=== PATIENT | female | born 1955 | race Caucasian/White ===

== ENCOUNTER 2016-08-13 21:42 | Inpatient (IN) | payer OTHER, MEDICARE ==
[~2016-08-13 21:42] MED LIST: AUGM500T7 PO; CYCL5TAB PO; DICL75TA PO; FLUO40CA PO; GABA400C5 PO; GABA800T PO; LISI10TA PO; OXYGENTANK NAS.CANULA; PRAV80TA2 PO; PRED10 PO; TIOT1AER2 INH; TRAM50TA PO; VENTAER INH; ZOLP5TAB3 PO
[2016-08-13 21:46] VITALS: BP 162/79; PULSE 85; RESP 22; TEMP 98.1; O2SAT 88
[2016-08-13 21:55] VITALS: PULSE 85; RESP 20; O2SAT 90
[2016-08-13] MEDS ORDERED: SODIUM CHLORIDE 0.9% FLUSH 5 ML FLUSH IVF PRN (22:00)
--- NOTE | 2016-08-13 22:01 | PD ---
HPI Chief Complaint: Respiratory Distress Time Seen by Provider: 21:49 Travel History International Travel<30 days: No Contact w/Intl Traveler<30days: No Traveled to known affect area: No History of Present Illness HPI 6-year-old female arrives complaining of shortness of breath. She was admitted here for exploratory laparotomy with a total abdominal hysterectomy. Thereafter she became hypoxic. The patient was discharged today and while at home became somewhat hypoxic. She had an oxygen machine at home and was using 3 L nasal cannula. When EMS arrived she was found to be hypoxic in the 70s. They applied a nonrebreather and her O2 sat increased to the mid-80s. In the ER she denies chest pain. She reports constant dyspnea at rest. She's had no fever or an occasional cough is reported. Orthopnea is reported. Dyspnea on exertion is reported. She denies any edema/swelling. PFSH Past Medical History Cancer: No Cardiovascular Problems: Yes Diminished Hearing: No Endocrine: No Genitourinary: No Hepatitis: No Hiatal Hernia: No Hypertension: Yes Immune Disorder: No Musculoskeletal: Yes (DEGENERATIVE DISC DISEASE,ARTHRITIS) Neurologic: No (POSSIBLY 1 SEIZURE IN PAST, NEUROPATHY LEGS FROM BACK) Psychiatric: Yes (DEPRESSION) Respiratory: No Menopausal: Yes Past Surgical History Abdominal Surgery: No AICD: No Body Medical Devices: TITANIUM RODS AND SCREWS BACK Cardiac Surgery: No Section: Yes (X 1) Ear Surgery: No Endocrine Surgery: No Eye Surgery: No Genitourinary Surgery: No Gynecologic Surgery: Yes (C SECTION) Hysterectomy: Yes Joint Replacement: No Neurologic Surgery: Yes (SPINAL FUSION PER PT) Oral Surgery: No Pacemaker: No Thoracic Surgery: No Social History Alcohol Use: Yes (OCCASIONAL) Tobacco Use: Yes Substance Use: No (PT DENIES) Allergies-Medications (Allergen,Severity, Reaction): Coded Allergies: Hydrocodone (Unverified Allergy, Intermediate, ITCHING, 08/13/16) Reported Meds & Prescriptions Reported Meds & Active Scripts Active Oxygen tank (Oxygen) 1 Ea Tank 2 Liter GLO.CANULA CONTINUOUS Oxygen Concentrator Portable Gaseous 3 L/min via Nasal Cannula Continuous For 99 months Reported Ventolin Hfa 18 GM Inh (Albuterol Sulfate) 90 Mcg/Act Aer 2 Puff INH QID PRN Spiriva Respimat Inh (Tiotropium Inh) 1.25 Mcg/Act Aero 2 Puff INH DAILY 1.25 mcg = 1 inhalation Augmentin (Amoxicillin-Clavulanate) 500-125 mg Tab 500 Mg PO TID 7 Days Prednisone 10 Mg Tab 10 Mg PO BID 7 Days Lisinopril-Hctz 10-12.5 Mg Tab 1 Tab PO DAILY Fluoxetine (Fluoxetine HCl) 40 Mg Cap 80 Mg PO DAILY Gabapentin 400 Mg Cap 400 Cap PO BID Gabapentin 800 Mg Tab 800 Mg PO HS Pravastatin 80 Mg Tab 80 Mg PO HS Zolpidem (Zolpidem Tartrate) 5 Mg Tab 5 Mg PO HS Diclofenac Sodium DR (Diclofenac Sodium) 75 Mg Tabdr 75 Mg PO BID Tramadol (Tramadol HCl) 50 Mg Tab 50 Mg PO TID PRN Flexeril (Cyclobenzaprine HCl) 5 Mg Tab 5-10 Mg PO BID PRN Review of Systems Except as stated in HPI: all other systems reviewed are Neg Physical Exam Narrative GENERAL: 60 yo F, WNWD, mild conversation dyspnea, NRB mask present SKIN: Warm and dry. HEAD: Atraumatic. Normocephalic. EYES: Pupils equal and round. No scleral icterus. No injection or drainage. ENT: No nasal bleeding or discharge. Mucous membranes pink and moist. NECK: Trachea midline. No JVD. CARDIOVASCULAR: Regular rate and rhythm. No murmur appreciated. RESPIRATORY: No accessory muscle use. Clear to auscultation. Breath sounds equal bilaterally. GASTROINTESTINAL: Abdomen soft, non-tender, nondistended. Hepatic and splenic margins not palpable. MUSCULOSKELETAL: No obvious deformities. No clubbing. No cyanosis. No edema. NEUROLOGICAL: Awake and alert. No obvious cranial nerve deficits. Motor grossly within normal limits. Normal speech. PSYCHIATRIC: Appropriate mood and affect; insight and judgment normal. Data Data Last Documented VS Vital Signs Date Time Temp Pulse Resp B/P Pulse Ox O2 Delivery O2 Flow Rate FiO2 08/13/16 23:00 96 BiPAP 50 08/13/16 22:00 15 08/13/16 21:55 20 08/13/16 21:55 85 08/13/16 21:46 98.1 162/79 Orders Complete Blood Count With Diff (08/13/16 21:51) Comprehensive Metabolic Panel (08/13/16 21:51) B-Type Natriuretic Peptide (08/13/16 21:51) Arterial Blood Gas (Abg) (08/13/16 21:51) Iv Access Insert/Monitor (08/13/16 21:51) Electrocardiogram (08/13/16 21:51) Ecg Monitoring (08/13/16 21:51) Oximetry (08/13/16 21:51) Oxygen Administration (08/13/16 21:51) Chest, Single Ap (08/13/16 21:51) Sodium Chloride 0.9% Flush (Ns Flush) (08/13/16 22:00) Ct Pulmonary Angiogram (08/13/16 22:19) Resp Request For Service (08/13/16 ) Blood Culture (08/13/16 22:53) Vancomycin Inj (Vancomycin Inj) (08/14/16 00:00) Cefepime Inj (Maxipime Inj) (08/13/16 23:00) Furosemide Inj (Lasix Inj) (08/13/16 23:15) Potassium Chloride (Kcl) (08/13/16 23:15) Furosemide Inj (Lasix Inj) (08/13/16 23:30) Potassium Chloride Eff (K-Lyte Cl Eff) (08/14/16 01:00) Admit Order (Ed Use Only) (08/13/16 23:23) Admit To Inpatient (08/13/16 ) Vital Signs (Adult) Q4H (08/13/16 23:23) Activity Oob With Assistance (08/13/16 23:23) ^ Homicide Detective / Telemetry .CONTINUOUS (08/13/16 23:23) Intake + Output ADE.QSHIFT (08/13/16 23:23) Diet Heart Healthy (08/14/16 Breakfast) Sodium Chloride 0.9% Flush (Ns Flush) (08/13/16 23:30) Sodium Chloride 0.9% Flush (Ns Flush) (08/14/16 09:00) Basic Metabolic Panel (Bmp) (08/14/16 06:00) Complete Blood Count With Diff (08/14/16 06:00) Creatine Kinase (Cpk) (08/14/16 02:00) Creatine Kinase (Cpk) (08/14/16 08:00) Troponin I (08/14/16 02:00) Troponin I (08/14/16 08:00) Electrocardiogram (08/14/16 04:00) Electrocardiogram (08/14/16 10:00) Naloxone Inj (Narcan Inj) (08/13/16 23:30) Inpatient Certification (08/13/16 ) Labs Laboratory Tests Test 08/13/16 08/13/16 21:55 22:00 White Blood Count 27.7 TH/MM3 Red Blood Count 3.54 MIL/MM3 Hemoglobin 11.0 GM/DL Hematocrit 32.8 % Mean Corpuscular Volume 92.6 FL Mean Corpuscular Hemoglobin 31.0 PG Mean Corpuscular Hemoglobin 33.5 % Concent Red Cell Distribution Width 14.0 % Platelet Count 325 TH/MM3 Mean Platelet Volume 9.5 FL Neutrophils (%) (Auto) 88.1 % Lymphocytes (%) (Auto) 6.1 % Monocytes (%) (Auto) 4.1 % Eosinophils (%) (Auto) 1.5 % Basophils (%) (Auto) 0.2 % Neutrophils # (Auto) 24.4 TH/MM3 Lymphocytes # (Auto) 1.7 TH/MM3 Monocytes # (Auto) 1.1 TH/MM3 Eosinophils # (Auto) 0.4 TH/MM3 Basophils # (Auto) 0.1 TH/MM3 CBC Comment AUTO DIFF Differential Comment AUTO DIFF CONFIRMED Platelet Estimate NORMAL Platelet Morphology Comment NORMAL Red Cell Morphology Comment NORMAL Sodium Level 143 MEQ/L Potassium Level 3.1 MEQ/L Chloride Level 104 MEQ/L Carbon Dioxide Level 31.7 MEQ/L Anion Gap 7 MEQ/L Blood Urea Nitrogen 15 MG/DL Creatinine 0.78 MG/DL Estimat Glomerular Filtration 75 ML/MIN Rate Random Glucose 159 MG/DL Calcium Level 7.7 MG/DL Total Bilirubin 0.5 MG/DL Aspartate Amino Transf 27 U/L (AST/SGOT) Alanine Aminotransferase 23 U/L (ALT/SGPT) Alkaline Phosphatase 87 U/L B-Type Natriuretic Peptide 285 PG/ML Total Protein 5.3 GM/DL Albumin 2.6 GM/DL Blood Gas Puncture Site LT RADIAL Blood Gas Patient Temperature 98.6 Blood Gas HCO3 27 mmol/L Blood Gas Base Excess 4.0 mmol/L Blood Gas Oxygen Saturation 91 % Arterial Blood pH 7.50 Arterial Blood Partial 35 mmHg Pressure CO2 Arterial Blood Partial 70 mmHG Pressure O2 Arterial Blood Oxygen Content 14.8 Vol % Arterial Blood 2.9 % Carboxyhemoglobin Arterial Blood Methemoglobin 2.0 % Blood Gas Hemoglobin 11.5 G/DL Oxygen Delivery Device NONE REBREATHER Blood Gas Liter Flow 15 L/M Blood Gas Inspired Oxygen 100 % MDM Medical Decision Making Medical Screen Exam Complete: Yes Emergency Medical Condition: Yes Medical Record Reviewed: Yes Differential Diagnosis COPD, hypoxia, anxiety, pulmonary edema, pneumonia, liver disease, kidney disease Narrative Course CBC & BMP Diagram 08/13/16 21:55 7.50/35/27 NRB FiO2 100% pao2 70 LFTs are normal The troponin is undetectable The BNP 285 EKG reveals sinus rhythm with a rate of 83ischemic injury pattern present. The patient was placed on BiPAP shortly following ER arrival. Her FiO2 was decreased to 50% and her O2 sat increased to 95%. Her white count is 27,000. There is edema on chest x-ray. Healthcare associated antibiotics initiated. Blood cultures drawn. The BNP is elevated at 285. Lasix administered. Case discussed with Dr. Navarro. Critical Care Narrative Aggregate critical care time was 35 minutes. Time to perform other separately billable procedures was not included in the critical care time. My time did not include minutes spent treating any other patients simultaneously or on activities that did not directly contribute to the patient's treatment. The services I provided to this patient were to treat and/or prevent clinically significant deterioration that could result in: Hypoxemia, respiratory arrest I provided critical care services requiring my management, as noted below: Chart data review, documentation time, medication orders and management, vital sign assessments/reviewing monitor data, ordering and reviewing lab tests, ordering and interpreting/reviewing x-rays and diagnostic studies, care of the patient and discussion of the patient with the admitting physicians. Diagnosis Primary Impression: ACUTE PULMONARY EDEMA Additional Impressions: Hypoxia Tachypnea Hypokalemia Admitting Information Admitting Physician Requests: Marcelo Dave MD Aug 13, 2016 22:01
[2016-08-13 22:08] LABS: BLOOD GAS CARBOXYHEMOGLOBIN 2.9 % (0-4); BLOOD GAS HCO3 27 mmol/L (22-26); BLOOD GAS O2 HGB SATURATION 91 % (90-100); BLOOD GAS OXYGEN CONTENT 14.8 Vol % (12.0-20.0); BLOOD GAS PCO2 35 mmHg (38-42); BLOOD GAS PO2 70 mmHG (61-120); BLOOD GAS TOTAL HGB 11.5 G/DL (12.0-16.0); TEMP CORR TO 98.6
[2016-08-13 22:09] LABS: CRITICAL VALUE NO; DRAW SITE LT RADIAL; FIO2 100 %; LITER FLOW 15 L/M; NUMBER OF ARTERIAL PUNCTURES 1; OXYGEN DEVICE NONE REBREATHER; STAT YES; ULNAR PULSE PRESENT
[2016-08-13 22:10] LABS: AUTOMATED NEUTROPHIL # 24.4 TH/MM3 (1.8-7.7); BASOPHIL # 0.1 TH/MM3 (0-0.2); BASOPHIL % 0.2 % (0.0-2.0); EOSINOPHIL # 0.4 TH/MM3 (0-0.4); EOSINOPHIL % 1.5 % (0.0-4.0); HEMATOCRIT 32.8 % (35.0-46.0); LYMPH % 6.1 % (9.0-44.0); LYMPHOCYTE # 1.7 TH/MM3 (1.0-4.8); MEAN CELL VOLUME 92.6 FL (80.0-100.0); MEAN CORPUSCULAR HGB CONC 33.5 % (32.0-36.0); MONO % 4.1 % (0.0-8.0); NEUT % 88.1 % (16.0-70.0); PLATELET COUNT 325 TH/MM3 (150-450); RED BLOOD COUNT 3.54 MIL/MM3 (4.00-5.30); WHITE BLOOD COUNT 27.7 TH/MM3 (4.0-11.0)
[2016-08-13 22:13] LABS: HEMO FLAGS AUTO DIFF
--- NOTE | 2016-08-13 22:18 | RADRPT ---
EXAM DATE/TIME: 08/13/2016 21:52 [facility] COMPARISON: CHEST SINGLE AP, August 13, 2016, 6:16. INDICATIONS : SOB MEDICAL HISTORY : Hypertension. Chronic obstructive pulmonary disease. SURGICAL HISTORY : None. ENCOUNTER: Initial ACUITY: 1 day PAIN SCORE: 0/10 LOCATION: chest FINDINGS: A single portable frontal view the chest shows cardiomegaly with pulmonary vascular enlargement and b ibasilar intra-alveolar infiltrates. No effusions. Scoliotic curvature of a mildly degenerative spine . CONCLUSION: Intra-alveolar pulmonary edema. David sTe Jr., MD on August 13, 2016 at 22:16 Board Certified Radiologist. This report was verified electronically.
[2016-08-13 22:20] VITALS: O2SAT 96
[2016-08-13 22:22] LABS: ALT (GPT) 23 U/L (10-53); ANION GAP 7 MEQ/L (5-15); AST (GOT) 27 U/L (15-37); BICARBONATE 31.7 MEQ/L (21.0-32.0); BLOOD UREA NITROGEN 15 MG/DL (7-18); CHLORIDE 104 MEQ/L (98-107); GLOMERULAR FILTRATION RATE 75 ML/MIN (>89); POTASSIUM 3.1 MEQ/L (3.5-5.1); SODIUM (NA) 143 MEQ/L (136-145)
[2016-08-13 22:24] LABS: ALKALINE PHOSPHATASE 87 U/L (45-117); TOTAL BILIRUBIN ADULT 0.5 MG/DL (0.2-1.0)
[2016-08-13 22:38] LABS: PLATELET ESTIMATE SMEAR NORMAL (NORMAL); PLATELET MORPHOLOGY NORMAL (NORMAL); SCAN/DIFF AUTO DIFF CONFIRMED
[2016-08-13] MEDS ORDERED: CEFEPIME INJ 2,000 MG in SODIUM CHLORIDE 0.9% INJ 100 ML IV ONE (23:00)
[2016-08-13] MEDS ORDERED: POTASSIUM CHLORIDE 20 MEQ CONTROLLED RELEASE TAB PO ONE (23:15)
[2016-08-13] MEDS ORDERED: FUROSEMIDE 20 MG/2 ML VIAL IV PUSH ONE (23:15)
[2016-08-13 23:20] VITALS: O2SAT 94
[2016-08-13] MEDS ORDERED: SODIUM CHLORIDE 0.9% FLUSH 5 ML FLUSH FLUSH PRN (23:30)
[2016-08-13] MEDS ORDERED: FUROSEMIDE 40 MG/4 ML VIAL IV PUSH ONE (23:30)
[2016-08-13] MEDS ORDERED: NALOXONE HCL 0.4 MG/ML AMP IV PRN (23:30)
[2016-08-13] MEDS ORDERED: IOHEXOL 350 MG/ML 10 ML VIAL (for RAD DIAG) IV ONE (23:35)
[2016-08-14] VITALS (34 sets, daily range): BP systolic 129–154; BP diastolic 73–82; PULSE 70–93; RESP 16–25; TEMP 97.8–98.7; O2SAT 89–97
[2016-08-14] MEDS ORDERED: VANCOMYCIN INJ 1,250 MG in SODIUM CHLOR 0.9% 250 ML INJ 250 ML IV ONE ×2
--- NOTE | 2016-08-14 00:09 | RADRPT ---
EXAM DATE/TIME: 08/13/2016 23:22 [facility] COMPARISON: CT PULMONARY ANGIOGRAM, August 06, 2016, 16:51. CHEST SINGLE AP, August 13, 2016, 21:52. INDICATIONS : Hypoxia, shortness of breath; rule out pulmonary embolus. IV CONTRAST: 64 cc Omnipaque 350 (iohexol) IV RADIATION DOSE: 17.54 CTDIvol (mGy) MEDICAL HISTORY : Hypertension. Cardiovascular disease SURGICAL HISTORY : lumbar spine fusion ENCOUNTER: Initial ACUITY: 1 day PAIN SCALE: 0/10 LOCATION: chest TECHNIQUE: Volumetric scanning of the chest was performed using a pulmonary embolism protocol MIP images were re constructed. Using automated exposure control and adjustment of the mA and/or kV according to patien t size, radiation dose was kept as low as reasonably achievable to obtain optimal diagnostic quality images. FINDINGS: PULMONARY ARTERIES: No filling defects are seen in the pulmonary arteries through the segmental level. LUNGS: There appears to be baseline interstitial fibrotic changes. Superimposed on this, diffuse interstitia l and alveolar opacities are present bilaterally, fairly symmetric and diffuse. PLEURAE: Minimal pleural fluid. MEDIASTINUM: There is mable enlargement involving the central mediastinum and the hilar regions bilaterally. This is nonspecific in the setting of diffuse lung disease. Small hiatal hernia present. MUSCULOSKELETAL: Within normal limits for patient age. MISCELLANEOUS: The visualized upper abdominal organs demonstrate no acute abnormality. CONCLUSION: No evidence of pulmonary embolism. Diffuse bilateral lung disease and likely reactive adenopathy. Lux Petersen MD on August 14, 2016 at 0:01 Board Certified Radiologist. This report was verified electronically.
--- NOTE | 2016-08-14 00:18 | HHI.HP ---
[facility] Harley Otto Admission Diagnosis Hypoxia, Pulm Edema, Poss PNA Diagnoses: Chief Complaint: Shortness of breath Travel History International Travel<30 Days: No Contact w/Intl Traveler <30 Da: No Traveled to Known Affected Are: No History of Present Illness History from patient, ER physician communication, and review of medical records. Patient reported that she was just discharged from our hospital in the morning. She reports after she arrived home, she was getting more and more short of breath. Denies cough. Denies sputum production. Denies any chest pains. She states that she was discharged on home oxygen. She was noted to be quite short of breath with hypoxia in the room air to the 80s upon arrival by EMS. In the emergency room, patient was placed on initially nasal cannula. However since her saturation was not picking up well, she was then switched to nonrebreather. She is saturating 95% on nonrebreather. She was also somewhat of an distress in terms of respiratory accessory muscle use. Therefore in ER she was switched to BiPAP. After the BiPAP administration , patient was quite comfortable. At the time of my exam, patient is awake, alert, oriented. Comfortable on BiPAP. She just received her Lasix and therefore she is urinating quite well. Review of Systems Constitutional: COMPLAINS OF: Fatigue, DENIES: Diaphoretic episodes, Fever, Weight gain, Weight loss, Chills, Dizziness, Change in appetite, Night Sweats Other ROS reviewed- none apart from what is reviewed above in HPI Past Family Social History Past Medical History hypertension Obesity COPDon home oxygen History of pulmonary edema in previous admissionpost operatively, from fluid overload. Ovarian massbenign. Recent total anterior hysterectomy. Past Surgical History Hysterectomy Lumbar fusion surgery Thumb surgery Ovarian cyst removal Reported Medications Patient's medications listed in EMRreviewed Allergies: Coded Allergies: Hydrocodone (Unverified Allergy, Intermediate, ITCHING, 08/13/16) Family History Denies family history of any medical issues. Social History Denies any alcohol abuse or drug abuse. Physical Exam Vital Signs Vital Signs Date Time Temp Pulse Resp B/P Pulse Ox O2 Delivery O2 Flow Rate FiO2 08/13/16 23:20 94 08/13/16 23:00 96 BiPAP 50 08/13/16 22:00 92 Non-Rebreather 15 08/13/16 21:55 20 92 Non-Rebreather 15 08/13/16 21:55 85 20 90 Non-Rebreather 15 08/13/16 21:55 86 Nasal Cannula 4 08/13/16 21:46 98.1 85 22 162/79 88 Physical Exam GENERAL: This is a well-nourished, well-developed patient, in no apparent distress. SKIN: No rashes, ecchymoses or lesions. Cool and dry. HEAD: Atraumatic. Normocephalic. No temporal or scalp tenderness. EYES: No scleral icterus. No injection or drainage. ENT: Nose without bleeding, purulent drainage or septal hematoma. Airway patent. NECK: Trachea midline. No JVD CARDIOVASCULAR: Regular rate and rhythm without murmurs, gallops, or rubs. RESPIRATORY: Clear to auscultation. Breath sounds equal bilaterally. No wheezes , rales, or rhonchi. GASTROINTESTINAL: Abdomen soft, non-tender, nondistended. No guarding. MUSCULOSKELETAL: Extremities without clubbing, cyanosis, or edema. No calf tenderness. NEUROLOGICAL: Awake and alert.Motor and sensory grossly within normal limits. Normal speech. Laboratory Laboratory Tests Test 08/13/16 08/13/16 21:55 22:00 White Blood Count 27.7 Red Blood Count 3.54 Hemoglobin 11.0 Hematocrit 32.8 Mean Corpuscular Volume 92.6 Mean Corpuscular Hemoglobin 31.0 Mean Corpuscular Hemoglobin 33.5 Concent Red Cell Distribution Width 14.0 Platelet Count 325 Mean Platelet Volume 9.5 Neutrophils (%) (Auto) 88.1 Lymphocytes (%) (Auto) 6.1 Monocytes (%) (Auto) 4.1 Eosinophils (%) (Auto) 1.5 Basophils (%) (Auto) 0.2 Neutrophils # (Auto) 24.4 Lymphocytes # (Auto) 1.7 Monocytes # (Auto) 1.1 Eosinophils # (Auto) 0.4 Basophils # (Auto) 0.1 CBC Comment AUTO DIFF Differential Comment AUTO DIFF CONFIRMED Platelet Estimate NORMAL Platelet Morphology Comment NORMAL Red Cell Morphology Comment NORMAL Sodium Level 143 Potassium Level 3.1 Chloride Level 104 Carbon Dioxide Level 31.7 Anion Gap 7 Blood Urea Nitrogen 15 Creatinine 0.78 Estimat Glomerular Filtration 75 Rate Random Glucose 159 Calcium Level 7.7 Total Bilirubin 0.5 Aspartate Amino Transf 27 (AST/SGOT) Alanine Aminotransferase 23 (ALT/SGPT) Alkaline Phosphatase 87 B-Type Natriuretic Peptide 285 Total Protein 5.3 Albumin 2.6 Blood Gas Puncture Site LT RADIAL Blood Gas Patient Temperature 98.6 Blood Gas HCO3 27 Blood Gas Base Excess 4.0 Blood Gas Oxygen Saturation 91 Arterial Blood pH 7.50 Arterial Blood Partial 35 Pressure CO2 Arterial Blood Partial 70 Pressure O2 Arterial Blood Oxygen Content 14.8 Arterial Blood 2.9 Carboxyhemoglobin Arterial Blood Methemoglobin 2.0 Blood Gas Hemoglobin 11.5 Oxygen Delivery Device NONE REBREATHER Blood Gas Liter Flow 15 Blood Gas Inspired Oxygen 100 Date/Time Procedure Status Source Growth 08/13/16 22:55 Aerobic Blood Culture Received Blood Peripheral Pending 08/13/16 22:55 Anaerobic Blood Culture Received Blood Peripheral Pending Result Diagram: [id number]/13/16215408/[id number]/[id number] Imaging Last [address] Angiography 08/13/162218 Signed Impressions: Service Date/Time: Saturday, August 13, 2016 23:22 - CONCLUSION: No evidence of pulmonary embolism. Diffuse bilateral lung disease and likely reactive adenopathy. Lux Petersen MD Chest X-Ray 08/13/162150 Signed Impressions: Service Date/Time: Saturday, August 13, 2016 21:52 - CONCLUSION: Intra-alveolar pulmonary edema. David Tse Jr., MD Assessment and Plan Problem List: (1) Hypoxia ICD Code: R09.02 Status: Acute (2) CHF (congestive heart failure) ICD Code: I50.9 Status: Acute (3) COPD exacerbation ICD Code: J44.1 Status: Acute Assessment and Plan Impression Respiratory failuremultifactorial. Mild fluid overload/pulmonary edema, COPD exacerbation, anxiety COPD exacerbation Mild pulmonary edema Hypokalemia hypertension Obesity COPDon home oxygen History of pulmonary edema in previous admissionpost operatively, from fluid overload. Ovarian massbenign. Recent total anterior hysterectomy. Plan: Continue BiPAP therapy. Nebulizers scheduled and when necessary. Serial cardiac enzymes and EKGs. Lasix 20 mg IV 1 dose. Input/output. Potassium 50 mg by mouth one dose now. Continue home dose of steroids. Cardiology consult. Resume home meds. DVT prophylaxison Lovenox. GI prophylaxis on pantoprazole. Discussed Condition With Patient, ER physician Physician Certification 2 Midnight Certification Type: Admission for Inpatient Services Order for Inpatient Services The services are ordered in accordance with Medicare regulations or non- Medicare payer requirements, as applicable. In the case of services not specified as inpatient-only, they are appropriately provided as inpatient services in accordance with the 2-midnight benchmark. Estimated LOS (days): 2 days is the estimated time the patient will need to remain in the hospital, assuming treatment plan goals are met and no additional complications. Post-Hospital Plan: Home Bettina Navarro MD Aug 14, 2016 00:18
[2016-08-14] MEDS ORDERED: traMADol HCL 50 MG TAB PO PRN (01:00)
[2016-08-14] MEDS ORDERED: traMADol HCL 50 MG TAB PO SCH (01:00)
[2016-08-14] MEDS ORDERED: POTASSIUM CHLORIDE 25 MEQ EFFERVESCENT TAB PO ONE (01:00)
[2016-08-14] MEDS ORDERED: ZOLPIDEM TARTRATE 5 MG TAB PO ONE (03:15)
[2016-08-14 05:05] LABS: AUTOMATED NEUTROPHIL # 24.8 TH/MM3 (1.8-7.7); BASOPHIL # 0.1 TH/MM3 (0-0.2); BASOPHIL % 0.2 % (0.0-2.0); EOSINOPHIL # 0.3 TH/MM3 (0-0.4); EOSINOPHIL % 1.2 % (0.0-4.0); HEMATOCRIT 32.2 % (35.0-46.0); LYMPH % 5.4 % (9.0-44.0); LYMPHOCYTE # 1.5 TH/MM3 (1.0-4.8); MEAN CELL VOLUME 93.4 FL (80.0-100.0); MEAN CORPUSCULAR HEMOGLOBIN 31.1 PG (27.0-34.0); MEAN CORPUSCULAR HGB CONC 33.3 % (32.0-36.0); MONO % 4.3 % (0.0-8.0); NEUT % 88.9 % (16.0-70.0); PLATELET COUNT 303 TH/MM3 (150-450); RED BLOOD COUNT 3.45 MIL/MM3 (4.00-5.30); RED CELL DISTRIBUTION WIDTH 14.4 % (11.6-17.2); WHITE BLOOD COUNT 27.9 TH/MM3 (4.0-11.0)
[2016-08-14 05:07] LABS: HEMO FLAGS AUTO DIFF
[2016-08-14 05:25] LABS: ANION GAP 9 MEQ/L (5-15); BICARBONATE 30.8 MEQ/L (21.0-32.0); BLOOD UREA NITROGEN 14 MG/DL (7-18); CHLORIDE 103 MEQ/L (98-107); GLOMERULAR FILTRATION RATE 83 ML/MIN (>89); POTASSIUM 3.6 MEQ/L (3.5-5.1); SODIUM (NA) 143 MEQ/L (136-145)
[2016-08-14 05:50] LABS: KERATOCYTES OCC (NORMAL); PLATELET ESTIMATE SMEAR NORMAL (NORMAL); PLATELET MORPHOLOGY NORMAL (NORMAL); SCAN/DIFF AUTO DIFF CONFIRMED
[2016-08-14 05:52] LABS: CREATINE KINASE 81 U/L (26-192)
[2016-08-14] MEDS: predniSONE 10 MG TAB PO SCH ×2 (08:45→20:10)
[2016-08-14] MEDS: LISINOPRIL 10 MG TAB PO SCH (08:45)
[2016-08-14] MEDS: FLUoxetine HCL 20 MG CAP PO SCH (08:45)
[2016-08-14] MEDS: HYDROCHLOROTHIAZIDE 25 MG TAB PO SCH (08:45)
[2016-08-14] MEDS: SODIUM CHLORIDE 0.9% FLUSH 5 ML FLUSH FLUSH SCH ×2 (08:49→20:14)
[2016-08-14] MEDS ORDERED: TIOTROPIUM INH SCH (09:00)
[2016-08-14] MEDS ORDERED: NON-FORMULARY DRUG (Lisinopril-Hctz 1 TAB) PO SCH (09:00)
[2016-08-14 10:22] LABS: CREATINE KINASE 88 U/L (26-192)
--- NOTE | 2016-08-14 13:48 | MB ---
cc: ROBE KING,ZOHREH TSANG MD DATE OF CONSULTATION: 08/14/2016. REASON FOR CONSULTATION: The patient is a pleasant 62-year-old woman I am seeing for respiratory failure. I have reviewed hospital records. HISTORY OF PRESENT ILLNESS: The patient most recently had an ovarian cyst removed. She notes for the last six months progressive dyspnea on exertion and hypoxemia. She was seen by Dr. Damon during her recent hospital stay. Her respiratory situation has worsened, although she has no other cardiac symptoms or history. Echocardiogram done 08/06 showed normal left ventricular function with very mild aortic stenosis. PAST MEDICAL HISTORY: The patient's past medical history otherwise includes: 1. Hypertension. 2. Obesity. 3. Pulmonary insufficiency on home oxygen. 4. Ovarian mass, benign. 5. Hysterectomy. ALLERGIES: Hydrocodone FAMILY HISTORY: Noncontributory. SOCIAL HISTORY: The patient is single and smoked in the past and does not drink. CARDIOLOGY STUDIES: Electrocardiograms have shown sinus rhythm and were normal. LABORATORY FINDINGS: White count elevated at 28,000. Potassium 3.6, creatinine 0.72. Troponins negative. BNP 285. IMAGING STUDIES: Chest x-ray with diffuse infiltrates. A CT angiogram showed interstitial fibrotic changes with superimposed diffuse interstitial and alveolar opacities and likely reactive adenopathy. REVIEW OF SYSTEMS: Review of systems remarkable for the above. Shortness of breath but no other true complaints. PHYSICAL EXAMINATION: GENERAL: On exam, she is an overweight woman who is lying on her side with BiPAP on. She is alert and oriented times three. SKIN: There are no xanthelasma and oropharyngeal mucosa normal. CHEST: With diffuse posterior rales. CARDIOVASCULAR: JVD normal. S1, S2 with a short 1/6 systolic ejection murmur at the base. ABDOMEN: Benign. EXTREMITIES: No cyanosis, clubbing or edema. PULSES: 2/2 throughout without bruits with 1 to 2+ pedal pulses. ASSESSMENT AND PLAN: The patient has diffuse rales with what appears to be diffuse pulmonary infiltrates. She has normal LV function. Her BNP is minimally elevated, which could easily be explained by her pulmonary situation. This does not appear to be cardiac given her normal LV function and relatively normal EKG. She does have a very mild murmur on exam, which does not explain things either. At this point, I have nothing more to add. We need to get pulmonary back involved as it does appear that she does have a diffuse pulmonary inflammatory process, which needs further evaluation and appropriate treatment. I will be available if needed. All questions were answered. MD KATHERINE Abbasi/DWAYNE /12:10 PM /1:41 PM
--- NOTE | 2016-08-14 13:59 | EKG ---
Date Performed: 08/13/2016 Time Performed: 21:52:25 PTAGE: 60 years EKG: Sinus rhythm WITH SHORT ME INTERVAL POSSIBLE LEFT ATRIAL ENLARGEMENT MINIMAL ST DEPRESSION BORDERLINE ECG Compare d to PREVIOUS TRACING , ST-T changes are new but minimal. PREVIOUS TRACIN08/10/2016 15.18 DOCTOR: Justin Guzman Interpretating Date/Time 08/14/2016 13:59:01
--- NOTE | 2016-08-14 13:59 | EKG ---
Date Performed: 08/14/2016 Time Performed: 04:12:50 PTAGE: 60 years EKG: Sinus rhythm Short [place] interval Possible left atrial abnormality Borderline ECG Compared to PREVIOUS TRACING , ST-T changes have improved. PREVIOUS TRACIN08/13/2016 21.52 DOCTOR: Justin Guzman Interpretating Date/Time 08/14/2016 13:59:21
--- NOTE | 2016-08-14 14:00 | EKG ---
Date Performed: 08/14/2016 Time Performed: 10:40:16 PTAGE: 60 years EKG: Sinus rhythm Short [place] interval Possible left atrial abnormality Borderline ECG Compared to PREVIOUS TRACING , no significant change. PREVIOUS TRACIN08/14/2016 04.12 DOCTOR: Justin Guzman Interpretating Date/Time 08/14/2016 13:59:37
--- NOTE | 2016-08-14 16:16 | HHI.PR ---
Addendum to Inpatient Note Addendum Reason: Additional Documentation Additional Information patient laying flat in bed sleeping - comfortable when woken up started becoming anxious hyperventilating, got out of bed with no difficulty lung exam- no rales , no wheeze, occasinal rhonchi no leg swelling ABG reviewed- respiratory alkalosis- negative for PE discuss with RT- to wean off to NC- duoneb q 6 and q 2 prn leukocytosis0 on CBC- on steroids since last admission - COPD- heavy smoker 1 pp day continue on po Prednisone consult Pulmonary- Dr. Bojorquez-known to him from last admission start Lovenox for DVT prophylaxis some psychiatric component will monitor Villa Davila MD Aug 14, 2016 16:16
[2016-08-14] MEDS: ENOXAPARIN SODIUM 40 MG/0.4 ML SYRINGE SQ SCH (16:34)
[2016-08-14] MEDS ORDERED: RESP: ALBUTEROL 2.5 MG/IPRATROPIUM 0.5 MG NEB (SCH) NEB ×2 (18:00→20:00)
[2016-08-14] MEDS: PRAVASTATIN SOD 80 MG TAB PO SCH (20:09)
[2016-08-14] MEDS: ZOLPIDEM TARTRATE 5 MG TAB PO SCH (20:09)
[2016-08-14] MEDS: traMADol HCL 50 MG TAB PO PRN (20:10)
[2016-08-14] MEDS: RESP: ALBUTEROL 2.5 MG/IPRATROPIUM 0.5 MG NEB (SCH) NEB (21:41)
[2016-08-15] VITALS (26 sets, daily range): BP systolic 112–152; BP diastolic 51–95; PULSE 67–83; RESP 20; TEMP 97.7–98.4; O2SAT 90–97
[2016-08-15] MEDS: RESP: ALBUTEROL 2.5 MG/IPRATROPIUM 0.5 MG NEB (SCH) NEB ×4 (03:22→21:14)
[2016-08-15] MEDS: traMADol HCL 50 MG TAB PO PRN ×2 (05:46→14:43)
[2016-08-15] MEDS: HYDROCHLOROTHIAZIDE 25 MG TAB PO SCH (08:22)
[2016-08-15] MEDS: FLUoxetine HCL 20 MG CAP PO SCH (08:22)
[2016-08-15] MEDS: predniSONE 10 MG TAB PO SCH ×2 (08:22→21:36)
[2016-08-15] MEDS: SODIUM CHLORIDE 0.9% FLUSH 5 ML FLUSH FLUSH SCH ×2 (08:22→21:00)
[2016-08-15] MEDS: LISINOPRIL 10 MG TAB PO SCH (08:22)
--- NOTE | 2016-08-15 13:48 | HHI.PR ---
Subjective Remarks heavy smoker 1 pack per day- stopped recently- from last admission high Fi02 requirement some anxiety component too Objective Vitals Vital Signs Date Time Temp Pulse Resp B/P Pulse Ox O2 Delivery O2 Flow Rate FiO2 08/15/16 13:22 69 08/15/16 12:08 69 08/15/16 11:38 97.8 75 20 112/51 94 08/15/16 11:38 94 Non-Rebreather 15.00 08/15/16 11:38 75 08/15/16 10:13 76 08/15/16 10:13 91 Non-Rebreather 08/15/16 09:22 72 08/15/16 08:52 90 Bi-Pap 12.00 45 08/15/16 08:52 97.8 76 20 152/89 90 08/15/16 08:52 76 08/15/16 07:19 20 08/15/16 05:27 91 45 08/15/16 05:00 68 08/15/16 04:00 70 08/15/16 04:00 92 Bi-Pap 45 08/15/16 04:00 98.4 70 20 133/68 97 08/15/16 03:22 93 BiPAP 45 08/15/16 03:00 67 08/15/16 02:00 73 08/15/16 01:00 75 08/15/16 01:00 91 45 08/15/16 00:25 92 Bi-Pap 45 08/15/16 00:25 98.3 74 20 137/95 97 08/15/16 00:00 78 08/14/16 23:00 77 08/14/16 22:00 93 08/14/16 21:00 86 08/14/16 20:00 81 08/14/16 19:40 97 Bi-Pap 50 08/14/16 19:40 98.3 76 20 129/75 97 08/14/16 19:00 70 08/14/16 18:33 72 08/14/16 18:31 89 BiPAP 08/14/16 18:27 89 50 08/14/16 17:00 75 08/14/16 16:35 98.7 73 25 144/76 96 08/14/16 16:35 96 Bi-Pap 50 08/14/16 16:00 83 08/14/16 15:02 96 50 08/14/16 15:00 72 08/14/16 14:34 87 Bi-Pap 50 08/14/16 14:00 82 I/O 08/14/16 08/14/16 08/14/16 08/15/16 08/15/16 08/15/16 07:00 15:00 23:00 07:00 15:00 23:00 Intake Total 240 ml 240 ml Output Total 1000 ml 600 ml Balance -760 ml -360 ml Intake Oral 240 ml 240 ml Output Urine Total 1000 ml 600 ml Result Diagram: 08/14/16 0415 08/14/16 [address] Angiography 08/13/162218 Signed Impressions: Service Date/Time: Saturday, August 13, 2016 23:22 - CONCLUSION: No evidence of pulmonary embolism. Diffuse bilateral lung disease and likely reactive adenopathy. Lux Petersen MD Chest X-Ray 08/13/162150 Signed Impressions: Service Date/Time: Saturday, August 13, 2016 21:52 - CONCLUSION: Intra-alveolar pulmonary edema. David Tse Jr., MD Objective Remarks awake and aleert, starts hyperventilating anicteric lungs no rales, decreased breath sounds regular rhythm abdomen-soft extremities no edema A/P Assessment and Plan 60 years old emale recent surgery DC 08/13 on NC and came back same day for Acute respiratory failure- underlying COPD- likely (1 ppd)- 02 requiring ABG- Respiratory alkalosis with hypoxemia high fi02 requirement continue on mask CTA negative for PE duonebs Pulmonary consulted- was seen by Dr. Hernandez last admission on Steroids- change to solumedrol 40 mg IV q 8 S/P recent YEE- BSO- pathology- cystadenoma Leukocytosis- on steroids history of Depression- on Prozac history of chronic back pain, neuropathy - gabapentin restarted history of HTN- on HCTZ/GAYATHRI PT consult CM consult- for SNF- she was send home with last admission Lovenox for DVT prophylaxis PPI for GI prophylaxis Villa Davila MD Aug 15, 2016 13:48
[2016-08-15] MEDS: PANTOPRAZOLE SOD 40 MG DELAYED RELEASE TAB PO SCH (14:40)
[2016-08-15] MEDS: GABAPENTIN 400 MG CAP PO SCH ×2 (14:40→21:36)
[2016-08-15] MEDS: methylPREDNISolone SOD SUCC 40 MG/1 ML VIAL IV PUSH SCH ×2 (14:40→21:36)
[2016-08-15] MEDS: ENOXAPARIN SODIUM 40 MG/0.4 ML SYRINGE SQ SCH (16:04)
[2016-08-15 16:31] LABS: RHEUMATOID FACTOR TRIGGER LESS THAN 10.0 IU/ML (0.0-14.9)
[2016-08-15] MEDS: PRAVASTATIN SOD 80 MG TAB PO SCH (21:00)
[2016-08-15] MEDS: ZOLPIDEM TARTRATE 5 MG TAB PO SCH (21:36)
--- NOTE | 2016-08-15 22:11 | MB ---
cc: SUGAR WOOTEN M.D., JOHN DATE OF CONSULTATION 08/15/2016 REASON FOR CONSULTATION Respiratory failure, COPD exacerbation. HISTORY OF PRESENT ILLNESS Ms. Carrillo is a 60-year-old female with known history of COPD, long, heavy smoking history continued to smoke up until two weeks when she had abdominal surgery. The patient is admitted with increasing shortness of breath, seen by Dr. Elvin Dobson in cardiac consultation with cardiac evaluation. He did not feel the patient does have congestive heart failure, rather the possibility of pneumonia is entertained. The patient denies history of fever, chills or hemoptysis. No TB or industrial exposure. Has a cough, small amount of whitish sputum. PAST MEDICAL HISTORY Her past medical history is that of: 1. Respiratory failure on home oxygen therapy recently seen by Dr. Damon. 2. Hypertension. 3. Ovarian mass surgically removed. 4. Previous hysterectomy. ALLERGIES HYDROCODONE. FAMILY HISTORY Noncontributory. SOCIAL HISTORY Long heavy smoking history, continued to smoke up until the time of hospitalization. MEDICATIONS 1. IV Solu-Medrol. 2. Albuterol ipratropium nebulizer. 3. Zolpidem at bedtime p.r.n. 4. Prophylactic Lovenox. 5. Fluoxetine. 6. Lisinopril. 7. Tramadol. REVIEW OF SYSTEMS 12-point review of systems as per HPI and past history otherwise negative. PHYSICAL EXAMINATION VITAL SIGNS: Temperature 98 degrees Fahrenheit, pulse 80, respiration 20, blood pressure 112/50. Oxygen saturation 91-94% on rebreathing mask. HEENT: Exam unremarkable. Eyes without icterus. NECK: Without adenopathy or thyroid enlargement. Central trachea. CHEST: Scattered rhonchi bilaterally. CARDIOVASCULAR: Examination PMI distant. S1-S2 audible. 1/6 ejection systolic murmur left sternal border. ABDOMEN: Lax, bowel sounds audible. EXTREMITIES: No clubbing, cyanosis or edema. SKIN: Normal. No lymphadenopathy. IMAGING CT angiogram without evidence of pulmonary emboli, bilateral lung infiltrates noted. LABORATORY DATA White count 27,000, hemoglobin 10.7, platelets 303,000. Sodium 143, potassium 3.6, BUN 9, creatinine 14. ABG pH 7.50, pCO2 35, pO2 70. IMPRESSION 1. Respiratory failure. 2. Pneumonia. 3. Question congestive heart failure. 4. Obesity. 5. Tobacco abuse. 6. COPD exacerbation. PLAN The patient to continue oxygen therapy. Infectious disease consultation for atypical pneumonia would be appropriate. I am not sure of the extent of the previous workup with collagen vascular studies. Further evaluation of atypical pneumonia would be appropriate. We will discuss this with Dr. Damon who will be following up the patient's care in the a.m. I do thank you for asking me to partake in Ms. Carrillo's care. Sugar Wooten MD [facility] /2:46 PM /9:54 PM
[2016-08-16] VITALS (27 sets, daily range): BP systolic 106–130; BP diastolic 62–72; PULSE 72–94; RESP 20–23; TEMP 97.9–98.5; O2SAT 90–99
[2016-08-16] MEDS: RESP: ALBUTEROL 2.5 MG/IPRATROPIUM 0.5 MG NEB (SCH) NEB ×6 (04:05→23:06)
[2016-08-16] MEDS: methylPREDNISolone SOD SUCC 40 MG/1 ML VIAL IV PUSH SCH ×3 (06:00→21:30)
[2016-08-16] MEDS: FLUoxetine HCL 20 MG CAP PO SCH (10:12)
[2016-08-16] MEDS: PANTOPRAZOLE SOD 40 MG DELAYED RELEASE TAB PO SCH (10:13)
[2016-08-16] MEDS: HYDROCHLOROTHIAZIDE 25 MG TAB PO SCH (10:13)
[2016-08-16] MEDS: predniSONE 10 MG TAB PO SCH (10:13)
[2016-08-16] MEDS: LISINOPRIL 10 MG TAB PO SCH (10:13)
[2016-08-16] MEDS: SODIUM CHLORIDE 0.9% FLUSH 5 ML FLUSH FLUSH SCH ×2 (10:15→21:29)
[2016-08-16] MEDS: GABAPENTIN 400 MG CAP PO SCH ×3 (10:17→21:30)
[2016-08-16 10:30] LABS: BLOOD GAS BASE EXCESS 2.2 mmol/L (-2-2); BLOOD GAS HCO3 26 mmol/L (22-26); BLOOD GAS METHEMOGLOBIN 0.9 % (0-2); BLOOD GAS O2 HGB SATURATION 92 % (90-100); BLOOD GAS OXYGEN CONTENT 16.3 Vol % (12.0-20.0); BLOOD GAS PCO2 39 mmHg (38-42); BLOOD GAS PO2 74 mmHg (61-120); BLOOD GAS TOTAL HGB 12.5 G/DL (12.0-16.0); CRITICAL VALUE NO; OXYGEN DEVICE BIPAP; TEMP CORR TO 98.6
[2016-08-16 10:31] LABS: DRAW SITE RT RADIAL; FIO2 50 %; NUMBER OF ARTERIAL PUNCTURES 1; STAT NO; ULNAR PULSE PRESENT
[2016-08-16] MEDS: traMADol HCL 50 MG TAB PO PRN ×2 (12:30→21:31)
--- NOTE | 2016-08-16 13:03 | HHI.PR ---
Subjective Remarks Follow for shortness of breath Shortness of breath better, had an episode this morning of desaturation, patient was placed on nonrebreather, ABG was fine. Presently, patient feels good, denies any chest pain or fever. Patient is a very poor historian. Objective Vitals Vital Signs Date Time Temp Pulse Resp B/P Pulse Ox O2 Delivery O2 Flow Rate FiO2 08/16/16 11:00 94 Non-Rebreather 15.00 08/16/16 11:00 98.3 84 20 113/63 94 08/16/16 09:00 81 08/16/16 08:19 90 50 08/16/16 08:19 90 BiPAP 50 08/16/16 08:15 Bi-Pap 08/16/16 08:00 84 08/16/16 07:00 78 08/16/16 07:00 91 Non-Rebreather 15.00 08/16/16 07:00 98.4 83 20 130/72 91 08/16/16 04:20 98.2 82 20 124/65 93 08/16/16 04:06 96 45 08/16/16 03:35 92 Bi-Pap 45 08/16/16 03:00 76 08/16/16 01:54 96 45 08/15/16 23:30 92 Bi-Pap 45 08/15/16 23:30 97.9 76 20 136/76 93 08/15/16 23:00 76 08/15/16 22:23 95 45 08/15/16 21:14 96 Non-Rebreather 10.00 08/15/16 20:00 97.9 83 20 125/66 93 08/15/16 20:00 93 Non-Rebreather 15.00 08/15/16 19:00 83 08/15/16 18:37 80 08/15/16 17:08 78 08/15/16 16:01 75 08/15/16 15:43 18 08/15/16 15:14 80 08/15/16 15:14 93 Non-Rebreather 15.00 08/15/16 15:14 97.7 80 20 121/64 93 08/15/16 14:03 80 08/15/16 13:22 69 I/O 08/15/16 08/15/16 08/15/16 08/16/16 08/16/16 08/16/16 06:59 14:59 22:59 06:59 14:59 22:59 Intake Total 240 ml 600 ml Output Total 600 ml 1500 ml Balance -360 ml -900 ml Intake Oral 240 ml 600 ml Output Urine Total 600 ml 1500 ml # Voids 4 # Bowel Movements 0 Result Diagram: 08/14/1641408/14/16414 Objective Remarks Not in distress, appears anxious, on nonrebreather. PERRL, pink conjunctiva without injection, anicteric Nose without bleeding, airway patent, oropharynx clear Supple neck, no masses or thyromegaly, trachea midline Normal rate and regular rhythm, no murmurs gallops or rubs appreciated. Decreased breath sounds symmetrically, no wheezing or crackles appreciated. Normal bowel sounds, soft, non-tender, nondistended, no guarding. Extremities without clubbing, cyanosis, or edema. No rash of generalized distribution. Skin is warm and dry. AAO x3, no cranial nerve deficits, moves all 4 extremities, no focal neurologic deficits Mildly anxious. A/P Assessment and Plan 60 years old female admitted for shortness of breath Acute respiratory failure, possible COPD exacerbation-patient had desaturation this morning, was placed on nonrebreather and BiPAP transiently, I ordered repeat ABG which is good, showed hypoxemia with wide gradient, continue oxygen support, pulmonary consulted, discussed with pulmonary today, recent question for atypical pneumonia, per pulmonary, does not need any infectious disease consultation. Canceled consult for ID. Discussed with Dr. Mckeon from infectious disease. CT negative for PE, continue intravenous steroids and antibiotics for now. CT scan of the chest showed bilateral infiltrates which is improved from previous. Rheumatoid factor negative. Antibiotics started cefepime and Flagyl. Leukocytosis-likely secondary to steroids history of Depression- on Prozac history of chronic back pain, neuropathy - gabapentin history of HTN- on HCTZ/GAYATHRI Anxiety-start Xanax as needed. Constipation-we'll start suppository per patient's request. Lovenox for DVT prophylaxis [facility] to [facility] when ready. Tuyet Cartagena MD Aug 16, 2016 13:03
[2016-08-16] MEDS ORDERED: BISACODYL 10 MG SUPP RECTAL PRN (13:30)
[2016-08-16] MEDS ORDERED: ALPRAZolam 0.25 MG TAB PO PRN (13:30)
--- NOTE | 2016-08-16 13:36 | HHI.PR ---
Subjective Remarks Cough and wheezing. On a NRB mask. No fever. Objective Vital Signs Date Time Temp Pulse Resp B/P Pulse Ox O2 Delivery O2 Flow Rate FiO2 08/16/16 11:00 94 Non-Rebreather 15.00 08/16/16 11:00 98.3 84 20 113/63 94 08/16/16 09:00 81 08/16/16 08:19 90 50 08/16/16 08:19 90 BiPAP 50 08/16/16 08:15 Bi-Pap 08/16/16 08:00 84 08/16/16 07:00 78 08/16/16 07:00 91 Non-Rebreather 15.00 08/16/16 07:00 98.4 83 20 130/72 91 08/16/16 04:20 98.2 82 20 124/65 93 08/16/16 04:06 96 45 08/16/16 03:35 92 Bi-Pap 45 08/16/16 03:00 76 08/16/16 01:54 96 45 08/15/16 23:30 92 Bi-Pap 45 08/15/16 23:30 97.9 76 20 136/76 93 08/15/16 23:00 76 08/15/16 22:23 95 45 08/15/16 21:14 96 Non-Rebreather 10.00 08/15/16 20:00 97.9 83 20 125/66 93 08/15/16 20:00 93 Non-Rebreather 15.00 08/15/16 19:00 83 08/15/16 18:37 80 08/15/16 17:08 78 08/15/16 16:01 75 08/15/16 15:43 18 08/15/16 15:14 80 08/15/16 15:14 93 Non-Rebreather 15.00 08/15/16 15:14 97.7 80 20 121/64 93 08/15/16 14:03 80 I/O 08/15/16 08/15/16 08/15/16 08/16/16 08/16/16 08/16/16 06:59 14:59 22:59 06:59 14:59 22:59 Intake Total 240 ml 600 ml Output Total 600 ml 1500 ml Balance -360 ml -900 ml Intake Oral 240 ml 600 ml Output Urine Total 600 ml 1500 ml # Voids 4 # Bowel Movements 0 Result Diagram: 08/14/16 0415 08/14/16 0415 Objective Remarks Well built Mid aged W/F alert and in no distress HEENT: Exam unremarkable. Eyes without icterus. NECK: Without adenopathy or thyroid enlargement. Central trachea. CHEST: Scattered rhonchi bilaterally.Occ bilateral crackles. CARDIOVASCULAR: Examination PMI distant. S1-S2 audible. 1/6 ejection systolic murmur left sternal border. ABDOMEN: Lax, bowel sounds audible.No mass. EXTREMITIES: No clubbing, cyanosis or edema. SKIN: Normal. No lymphadenopathy. Assessment and Plan Assessment and Plan IMPRESSION 1. Respiratory failure. 2. Pneumonia. 3. Question congestive heart failure. 4. Obesity. 5. Tobacco abuse. 6. COPD exacerbation. Plan: 1. Add Cefipime 1 gm IV BID. 2. Flagyl 500 mg PO tid. 3. nebs qid , duoneb. 4. CXR in am. 5. duonebs qid. 6. O2 at 50 % ventimask. 7. Bipap at HS12/5 CM , 40 % FIO2. 6. CBC,BMP in am Mario Damon MD Aug 16, 2016 13:36
[2016-08-16] MEDS ORDERED: PILL SPLITTER OTHER PRN (14:00)
[2016-08-16] MEDS: CEFEPIME INJ 1,000 MG in SODIUM CHLORIDE 0.9% INJ 100 ML IV SCH (14:22)
[2016-08-16] MEDS: metroNIDAZOLE 500 MG TAB PO SCH ×2 (14:24→21:30)
[2016-08-16] MEDS: ENOXAPARIN SODIUM 40 MG/0.4 ML SYRINGE SQ SCH (17:00)
[2016-08-16] MEDS: PRAVASTATIN SOD 80 MG TAB PO SCH (21:00)
[2016-08-16] MEDS: ZOLPIDEM TARTRATE 5 MG TAB PO SCH (21:30)
[2016-08-17] VITALS (30 sets, daily range): BP systolic 101–121; BP diastolic 52–68; PULSE 72–93; RESP 20; TEMP 97.5–98.5; O2SAT 91–100
--- NOTE | 2016-08-17 02:17 | RADRPT ---
EXAM DATE/TIME: 08/17/2016 01:43 [facility] COMPARISON: CHEST SINGLE AP, August 13, 2016, 21:52. INDICATIONS : Shortness of breath. MEDICAL HISTORY : Hypertension. Cardiovascular disease. SURGICAL HISTORY : Fusion, lumbar. ENCOUNTER: Subsequent ACUITY: 1 week PAIN SCORE: 0/10 LOCATION: Bilateral chest FINDINGS: A single AP erect portable view of the chest was obtained and demonstrates an interval decrease in bi lateral interstitial opacities with mild to moderate residual remaining greatest at the lung bases. T he heart size appears at the upper limits of normal. There is no effusion. The bony thorax remains in tact with overlying electrocardiogram leads. CONCLUSION: Mild improvement in bilateral interstitial opacities. Luis Miguel Sanchez MD on August 17, 2016 at 2:14 Board Certified Radiologist. This report was verified electronically.
[2016-08-17] MEDS: CEFEPIME INJ 1,000 MG in SODIUM CHLORIDE 0.9% INJ 100 ML IV SCH ×2 (03:01→14:43)
[2016-08-17] MEDS: RESP: ALBUTEROL 2.5 MG/IPRATROPIUM 0.5 MG NEB (SCH) NEB ×6 (03:12→19:30)
[2016-08-17] MEDS: metroNIDAZOLE 500 MG TAB PO SCH ×3 (06:33→21:46)
[2016-08-17] MEDS: methylPREDNISolone SOD SUCC 40 MG/1 ML VIAL IV PUSH SCH ×3 (06:34→21:46)
[2016-08-17 07:04] LABS: AUTOMATED NEUTROPHIL # 16.3 TH/MM3 (1.8-7.7); BASOPHIL % 0.1 % (0.0-2.0); HEMATOCRIT 32.1 % (35.0-46.0); HEMO FLAGS DIFF FINAL; LYMPH % 3.2 % (9.0-44.0); LYMPHOCYTE # 0.6 TH/MM3 (1.0-4.8); MEAN CELL VOLUME 94.1 FL (80.0-100.0); MEAN CORPUSCULAR HEMOGLOBIN 31.8 PG (27.0-34.0); MEAN CORPUSCULAR HGB CONC 33.8 % (32.0-36.0); MONO % 8.2 % (0.0-8.0); NEUT % 88.5 % (16.0-70.0); PLATELET COUNT 339 TH/MM3 (150-450); RED BLOOD COUNT 3.41 MIL/MM3 (4.00-5.30); RED CELL DISTRIBUTION WIDTH 14.5 % (11.6-17.2); WHITE BLOOD COUNT 18.4 TH/MM3 (4.0-11.0)
[2016-08-17 07:07] LABS: BICARBONATE 30.9 MEQ/L (21.0-32.0); POTASSIUM 3.5 MEQ/L (3.5-5.1)
[2016-08-17] MEDS: LISINOPRIL 10 MG TAB PO SCH (10:19)
[2016-08-17] MEDS: PANTOPRAZOLE SOD 40 MG DELAYED RELEASE TAB PO SCH (10:19)
[2016-08-17] MEDS: HYDROCHLOROTHIAZIDE 25 MG TAB PO SCH (10:19)
[2016-08-17] MEDS: SODIUM CHLORIDE 0.9% FLUSH 5 ML FLUSH FLUSH SCH ×2 (10:20→21:45)
[2016-08-17] MEDS: FLUoxetine HCL 20 MG CAP PO SCH (10:22)
[2016-08-17] MEDS: GABAPENTIN 400 MG CAP PO SCH ×3 (10:23→21:45)
--- NOTE | 2016-08-17 12:42 | HHI.PR ---
Subjective Remarks Less ough and wheezing. On a NRB mask. No fever. Has some pulmonary edema on CXR. Objective Vital Signs Date Time Temp Pulse Resp B/P Pulse Ox O2 Delivery O2 Flow Rate FiO2 08/17/16 07:18 95 Non-Rebreather 15.00 08/17/16 07:00 98.1 90 20 101/54 92 08/17/16 07:00 90 Non-Rebreather 15.00 08/17/16 07:00 72 08/17/16 06:00 84 08/17/16 05:41 95 55 08/17/16 05:00 75 08/17/16 04:00 81 08/17/16 03:26 94 55 08/17/16 03:00 97.7 77 20 114/66 95 08/17/16 03:00 95 Bi-Pap 55 08/17/16 03:00 77 08/17/16 02:00 74 08/17/16 01:00 72 08/17/16 00:00 76 08/16/16 23:50 95 BiPAP 55 08/16/16 23:30 99 Bi-Pap 55 08/16/16 23:30 98.3 81 23 110/62 98 08/16/16 23:00 81 08/16/16 22:00 91 08/16/16 21:32 96 55 08/16/16 21:00 72 08/16/16 20:00 99 Bi-Pap 60 08/16/16 20:00 97.9 81 20 119/69 99 08/16/16 20:00 78 08/16/16 19:30 92 60 08/16/16 19:00 94 08/16/16 18:00 85 08/16/16 17:00 90 08/16/16 16:00 83 08/16/16 15:00 98.5 79 22 106/64 95 08/16/16 15:00 95 Non-Rebreather 15.00 08/16/16 15:00 86 08/16/16 14:00 90 08/16/16 13:00 78 I/O 08/16/16 08/16/16 08/16/16 08/17/16 08/17/16 08/17/16 07:00 15:00 23:00 07:00 15:00 23:00 Intake Total 579 ml 340 ml Output Total 850 ml 600 ml Balance -271 ml -260 ml Intake Oral 480 ml 240 ml IV Total 99 ml 100 ml Output Urine Total 850 ml 600 ml # Voids 4 # Bowel Movements 1 Result Diagram: 08/17/1660308/17/16603 Objective Remarks Well built Mid aged W/F alert and in no distress HEENT: Exam unremarkable. Eyes without icterus. NECK: Without adenopathy or thyroid enlargement. Central trachea. CHEST: Scattered rhonchi bilaterally.Occ bilateral crackles.Distant breath sounds CARDIOVASCULAR: Examination PMI distant. S1-S2 audible. 1/6 ejection systolic murmur left sternal border. ABDOMEN: Lax, bowel sounds audible.No mass. EXTREMITIES: No clubbing, cyanosis or edema. SKIN: Normal. No lymphadenopathy. Assessment and Plan Assessment and Plan IMPRESSION 1. Respiratory failure. 2. Pneumonia. 3. Question congestive heart failure. 4. Obesity. 5. Tobacco abuse. 6. COPD exacerbation. Plan: 1. Cefipime 1 gm IV BID. 2. Flagyl 500 mg PO tid. 3. nebs qid , duoneb. 4. BMP in am. 5. duonebs qid. 6. O2 at 50 % ventimask. 7. Bipap at HS12/5 CM , 40 % FIO2. 6. Add Lasix 20 mg and Kcl 20 Meq daily. Mario Damon MD Aug 17, 2016 12:42
[2016-08-17] MEDS: FUROSEMIDE 20 MG TAB PO SCH (13:10)
[2016-08-17] MEDS: POTASSIUM CHLORIDE 20 MEQ CONTROLLED RELEASE TAB PO SCH (13:10)
[2016-08-17] MEDS: traMADol HCL 50 MG TAB PO PRN (13:28)
--- NOTE | 2016-08-17 14:46 | HHI.PR ---
Subjective Remarks Follow-up for shortness of breath next Shortness of breath better, chest x-ray shows congestion with bibasilar infiltrates. No fever overnight. Complaining of bilateral wrist pain, chronic , she takes diclofenac 75 mg twice a day. Objective Vitals Vital Signs Date Time Temp Pulse Resp B/P Pulse Ox O2 Delivery O2 Flow Rate FiO2 08/17/16 11:00 95 Non-Rebreather 15.00 08/17/16 11:00 97.5 83 20 121/68 95 08/17/16 07:18 95 Non-Rebreather 15.00 08/17/16 07:00 98.1 90 20 101/54 92 08/17/16 07:00 90 Non-Rebreather 15.00 08/17/16 07:00 72 08/17/16 06:00 84 08/17/16 05:41 95 55 08/17/16 05:00 75 08/17/16 04:00 81 08/17/16 03:26 94 55 08/17/16 03:00 97.7 77 20 114/66 95 08/17/16 03:00 95 Bi-Pap 55 08/17/16 03:00 77 08/17/16 02:00 74 08/17/16 01:00 72 08/17/16 00:00 76 08/16/16 23:50 95 BiPAP 55 08/16/16 23:30 99 Bi-Pap 55 08/16/16 23:30 98.3 81 23 110/62 98 08/16/16 23:00 81 08/16/16 22:00 91 08/16/16 21:32 96 55 08/16/16 21:00 72 08/16/16 20:00 99 Bi-Pap 60 08/16/16 20:00 97.9 81 20 119/69 99 08/16/16 20:00 78 08/16/16 19:30 92 60 08/16/16 19:00 94 08/16/16 18:00 85 08/16/16 17:00 90 08/16/16 16:00 83 08/16/16 15:00 98.5 79 22 106/64 95 08/16/16 15:00 95 Non-Rebreather 15.00 08/16/16 15:00 86 I/O 12/26/16 12/2608/16/16 08/17/16 08/17/16 08/17/16 07:00 15:00 23:00 07:00 15:00 23:00 Intake Total 579 ml 340 ml Output Total 850 ml 600 ml Balance -271 ml -260 ml Intake Oral 480 ml 240 ml IV Total 99 ml 100 ml Output Urine Total 850 ml 600 ml # Voids 4 # Bowel Movements 1 Result Diagram: 08/17/1660308/17/16603 Objective Remarks Not in distress, appears anxious, on nonrebreather. PERRL, pink conjunctiva without injection, anicteric Nose without bleeding, airway patent, oropharynx clear Supple neck, no masses or thyromegaly, trachea midline Normal rate and regular rhythm, no murmurs gallops or rubs appreciated. Decreased breath sounds symmetrically, no wheezing, occasional crackles. Normal bowel sounds, soft, non-tender, nondistended, no guarding. Extremities without clubbing, cyanosis, or edema. No rash of generalized distribution. Skin is warm and dry. AAO x3, no cranial nerve deficits, moves all 4 extremities, no focal neurologic deficits Mildly anxious. A/P Assessment and Plan 60 years old female admitted for shortness of breath Acute respiratory failure, possible COPD exacerbation-patient had desaturation this morning, was placed on nonrebreather and BiPAP transiently, I ordered repeat ABG which is good, showed hypoxemia with wide gradient, continue oxygen support, pulmonary consulted, discussed with pulmonary today, recent question for atypical pneumonia, per pulmonary, does not need any infectious disease consultation. Canceled consult for ID. Discussed with Dr. Mckeon from infectious disease. CT negative for PE, continue intravenous steroids and antibiotics for now. CT scan of the chest showed bilateral infiltrates which is improved from previous. Rheumatoid factor negative. Continue cefepime and Flagyl. Mild CHF- chest x-ray personally reviewed showed pulmonary edema, start Lasix, check BNP. Records reviewed, showed an ejection fraction of 65% with possible diastolic heart failure, echocardiogram done August 06. Leukocytosis-likely secondary to steroids history of Depression- on Prozac history of chronic back pain, neuropathy - gabapentin history of HTN- on HCTZ/GAYATHRI Anxiety-start Xanax as needed. Constipation- continue bisacodyl Lovenox for DVT prophylaxis Discharge to custodial when ready. Tuyet Cartagena MD Aug 17, 2016 14:46
[2016-08-17] MEDS: ENOXAPARIN SODIUM 40 MG/0.4 ML SYRINGE SQ SCH (16:08)
[2016-08-17] MEDS: ZOLPIDEM TARTRATE 5 MG TAB PO SCH (21:45)
[2016-08-17] MEDS: DICLOFENAC SODIUM 75 MG DELAYED RELEASE TAB PO SCH (21:45)
[2016-08-18] VITALS (28 sets, daily range): BP systolic 110–139; BP diastolic 59–83; PULSE 69–96; RESP 18–21; TEMP 97.2–98.5; O2SAT 93–100
[2016-08-18] MEDS: CEFEPIME INJ 1,000 MG in SODIUM CHLORIDE 0.9% INJ 100 ML IV SCH ×2 (03:39→14:39)
[2016-08-18] MEDS: RESP: ALBUTEROL 2.5 MG/IPRATROPIUM 0.5 MG NEB (SCH) NEB ×6 (04:28→21:33)
[2016-08-18 06:55] LABS: POTASSIUM 3.9 MEQ/L (3.5-5.1)
[2016-08-18] MEDS: SODIUM CHLORIDE 0.9% FLUSH 5 ML FLUSH FLUSH SCH ×2 (08:29→21:08)
[2016-08-18] MEDS: LISINOPRIL 10 MG TAB PO SCH (08:29)
[2016-08-18] MEDS: PANTOPRAZOLE SOD 40 MG DELAYED RELEASE TAB PO SCH (08:29)
[2016-08-18] MEDS: HYDROCHLOROTHIAZIDE 25 MG TAB PO SCH (08:30)
[2016-08-18] MEDS: FUROSEMIDE 20 MG TAB PO SCH (08:30)
[2016-08-18] MEDS: FLUoxetine HCL 20 MG CAP PO SCH (08:30)
[2016-08-18] MEDS: POTASSIUM CHLORIDE 20 MEQ CONTROLLED RELEASE TAB PO SCH (08:30)
[2016-08-18] MEDS: DICLOFENAC SODIUM 75 MG DELAYED RELEASE TAB PO SCH ×2 (08:30→21:08)
[2016-08-18] MEDS: GABAPENTIN 400 MG CAP PO SCH ×3 (08:38→21:08)
[2016-08-18] MEDS: methylPREDNISolone SOD SUCC 40 MG/1 ML VIAL IV PUSH SCH ×2 (14:00→14:38)
[2016-08-18] MEDS: metroNIDAZOLE 500 MG TAB PO SCH ×2 (14:38→21:08)
--- NOTE | 2016-08-18 16:54 | HHI.PR ---
Subjective Remarks Follow-up for shortness of breath Shortness of breath unchanged, still requiring a lot of oxygen, nonrebreather. Afebrile. Objective Vitals Vital Signs Date Time Temp Pulse Resp B/P Pulse Ox O2 Delivery O2 Flow Rate FiO2 08/18/16 16:00 88 08/18/16 15:00 97.9 83 20 110/60 97 08/18/16 15:00 96 08/18/16 14:00 83 08/18/16 13:00 88 08/18/16 12:15 99 Partial Non-Rebreather 15.00 08/18/16 12:00 90 Venturi Mask 6.00 50 08/18/16 12:00 88 08/18/16 11:00 100 Partial Non-Rebreather 15.00 08/18/16 11:00 84 08/18/16 11:00 98.5 81 20 127/70 96 08/18/16 10:00 85 08/18/16 09:58 97 Non-Rebreather 12.00 08/18/16 09:00 86 08/18/16 08:00 88 08/18/16 07:00 78 08/18/16 07:00 98.5 86 20 130/83 100 08/18/16 07:00 100 Partial Non-Rebreather 15.00 08/18/16 06:00 77 08/18/16 05:00 82 08/18/16 04:28 99 45 08/18/16 04:00 74 08/18/16 03:00 99 Bi-Pap 45 08/18/16 03:00 97.2 75 20 118/59 99 08/18/16 03:00 74 08/18/16 02:00 77 08/18/16 01:00 75 08/18/16 00:00 69 08/17/16 23:54 100 Bi-Pap 50 08/17/16 23:30 97.6 73 20 114/65 100 08/17/16 23:30 100 Bi-Pap 55 08/17/16 23:00 73 08/17/16 22:15 91 55 08/17/16 22:00 80 08/17/16 21:00 86 08/17/16 20:00 98.0 86 20 102/52 96 08/17/16 20:00 88 08/17/16 20:00 96 Non-Rebreather 15.00 12/27/16 19:33 91 Non-Rebreather 15.00 08/17/16 19:00 82 08/17/16 18:00 80 08/17/16 17:00 85 I/O 08/17/16 08/17/16 08/17/16 08/18/16 08/18/16 08/18/16 07:00 15:00 23:00 07:00 15:00 23:00 Intake Total 340 ml 960 ml 340 ml Output Total 600 ml 1500 ml 500 ml Balance -260 ml -540 ml -160 ml Intake Oral 240 ml 960 ml 240 ml IV Total 100 ml 100 ml Output Urine Total 600 ml 1500 ml 500 ml # Bowel Movements 1 0 0 Result Diagram: 08/17/16 0604 08/18/16 0549 Objective Remarks Not in distress, appears anxious, on nonrebreather. PERRL, pink conjunctiva without injection, anicteric Nose without bleeding, airway patent, oropharynx clear Supple neck, no masses or thyromegaly, trachea midline Normal rate and regular rhythm, no murmurs gallops or rubs appreciated. Decreased breath sounds symmetrically, no wheezing Normal bowel sounds, soft, non-tender, nondistended, no guarding. Extremities without clubbing, cyanosis, or edema. No rash of generalized distribution. Skin is warm and dry. AAO x3, no cranial nerve deficits, moves all 4 extremities, no focal neurologic deficits Mildly anxious. A/P Assessment and Plan 60 years old female admitted for shortness of breath Acute respiratory failure, possible COPD exacerbation-patient had desaturation this morning, was placed on nonrebreather and BiPAP transiently, I ordered repeat ABG which is good, showed hypoxemia with wide gradient, continue oxygen support, pulmonary consulted, discussed with pulmonary today, recent question for atypical pneumonia, per pulmonary, does not need any infectious disease consultation. Canceled consult for ID. Discussed with Dr. Mckeon from infectious disease. CT negative for PE, continue intravenous steroids and antibiotics for now. CT scan of the chest showed bilateral infiltrates which is improved from previous. Rheumatoid factor negative. Continue cefepime and Flagyl. Start incentive spirometry, patient counseled. Mild CHF- chest x-ray personally reviewed showed pulmonary edema, BNP normal, continue Lasix, BUN increasing, recheck BMP tomorrow. Records reviewed, showed an ejection fraction of 65% with possible diastolic heart failure, echocardiogram done August 06. Leukocytosis-likely secondary to steroids history of Depression- on Prozac history of chronic back pain, neuropathy - gabapentin history of HTN- on HCTZ/GAYATHRI Anxiety-start Xanax as needed. Constipation- continue bisacodyl Lovenox for DVT prophylaxis Discharge to [facility] when ready. Tuyet Cartagena MD Aug 18, 2016 16:54
[2016-08-18] MEDS: ENOXAPARIN SODIUM 40 MG/0.4 ML SYRINGE SQ SCH (17:00)
[2016-08-18] MEDS: PRAVASTATIN SOD 80 MG TAB PO SCH (18:00)
--- NOTE | 2016-08-18 18:32 | HHI.PR ---
Subjective Remarks Less cough and wheezing. Still On a NRB mask. No fever. Has some pulmonary edema on CXR. Good output. Objective Vital Signs Date Time Temp Pulse Resp B/P Pulse Ox O2 Delivery O2 Flow Rate FiO2 08/18/16 16:00 88 08/18/16 15:00 97.9 83 20 110/60 97 08/18/16 15:00 100 Partial Non-Rebreather 12.00 08/18/16 15:00 96 08/18/16 14:00 83 08/18/16 13:00 88 08/18/16 12:15 99 Partial Non-Rebreather 15.00 08/18/16 12:00 90 Venturi Mask 6.00 50 08/18/16 12:00 88 08/18/16 11:00 100 Partial Non-Rebreather 15.00 08/18/16 11:00 84 08/18/16 11:00 98.5 81 20 127/70 96 08/18/16 10:00 85 08/18/16 09:58 97 Non-Rebreather 12.00 08/18/16 09:00 86 08/18/16 08:00 88 08/18/16 07:00 78 08/18/16 07:00 98.5 86 20 130/83 100 08/18/16 07:00 100 Partial Non-Rebreather 15.00 08/18/16 06:00 77 08/18/16 05:00 82 08/18/16 04:28 99 45 08/18/16 04:00 74 08/18/16 03:00 99 Bi-Pap 45 08/18/16 03:00 97.2 75 20 118/59 99 08/18/16 03:00 74 08/18/16 02:00 77 08/18/16 01:00 75 08/18/16 00:00 69 08/17/16 23:54 100 Bi-Pap 50 08/17/16 23:30 97.6 73 20 114/65 100 08/17/16 23:30 100 Bi-Pap 55 08/17/16 23:00 73 08/17/16 22:15 91 55 08/17/16 22:00 80 08/17/16 21:00 86 08/17/16 20:00 98.0 86 20 102/52 96 08/17/16 20:00 88 08/17/16 20:00 96 Non-Rebreather 15.00 08/17/16 19:33 91 Non-Rebreather 15.00 08/17/16 19:00 82 I/O 08/17/16 08/17/16 08/17/16 08/18/16 08/18/16 08/18/16 07:00 15:00 23:00 07:00 15:00 23:00 Intake Total 340 ml 960 ml 340 ml Output Total 600 ml 1500 ml 500 ml Balance -260 ml -540 ml -160 ml Intake Oral 240 ml 960 ml 240 ml IV Total 100 ml 100 ml Output Urine Total 600 ml 1500 ml 500 ml # Bowel Movements 1 0 0 Result Diagram: 08/17/16 0604 08/18/16 0549 Objective Remarks Well built Mid aged W/F alert and in no distress HEENT: Exam unremarkable. Eyes without icterus. NECK: Without adenopathy or thyroid enlargement. Central trachea. CHEST: Scattered rhonchi bilaterally.Occ basal crackles.Distant breath sounds CARDIOVASCULAR: Examination PMI distant. S1-S2 audible. 1/6 ejection systolic murmur left sternal border. ABDOMEN: Lax, bowel sounds audible.No mass. EXTREMITIES: No clubbing, cyanosis or edema. SKIN: Normal. No lymphadenopathy. Assessment and Plan Assessment and Plan IMPRESSION 1. Respiratory failure. 2. Pneumonia. 3. Question congestive heart failure. 4. Obesity. 5. Tobacco abuse. 6. COPD exacerbation. Plan: 1. Cefipime 1 gm IV BID. 2. Flagyl 500 mg PO tid. 3. nebs qid , duoneb. 4. Wean O2 to Ventimask 50% 5. duonebs qid. 6. Solumedrol 40 mg IV q12h. 7. Bipap at HS12/5 CM , 40 % FIO2. 6. Add Lasix 20 mg and Kcl 20 Meq daily. Mario Damon MD Aug 18, 2016 18:32
[2016-08-18] MEDS: ZOLPIDEM TARTRATE 5 MG TAB PO SCH (21:08)
[2016-08-19] VITALS (29 sets, daily range): BP systolic 103–136; BP diastolic 52–70; PULSE 72–92; RESP 17–24; TEMP 98–98.9; O2SAT 92–99
[2016-08-19] MEDS: CEFEPIME INJ 1,000 MG in SODIUM CHLORIDE 0.9% INJ 100 ML IV SCH ×2 (02:48→14:19)
[2016-08-19] MEDS: RESP: ALBUTEROL 2.5 MG/IPRATROPIUM 0.5 MG NEB (SCH) NEB ×4 (03:36→19:23)
[2016-08-19 03:54] LABS: POTASSIUM 3.6 MEQ/L (3.5-5.1)
[2016-08-19] MEDS: metroNIDAZOLE 500 MG TAB PO SCH ×3 (06:02→20:34)
[2016-08-19] MEDS ORDERED: methylPREDNISolone SOD SUCC 40 MG/1 ML VIAL IV PUSH SCH (09:00)
[2016-08-19] MEDS: FLUoxetine HCL 20 MG CAP PO SCH (09:02)
[2016-08-19] MEDS: SODIUM CHLORIDE 0.9% FLUSH 5 ML FLUSH FLUSH SCH ×2 (09:02→20:34)
[2016-08-19] MEDS: FUROSEMIDE 20 MG TAB PO SCH (09:02)
[2016-08-19] MEDS: LISINOPRIL 10 MG TAB PO SCH (09:03)
[2016-08-19] MEDS: HYDROCHLOROTHIAZIDE 25 MG TAB PO SCH (09:03)
[2016-08-19] MEDS: DICLOFENAC SODIUM 75 MG DELAYED RELEASE TAB PO SCH ×2 (09:03→20:33)
[2016-08-19] MEDS: PANTOPRAZOLE SOD 40 MG DELAYED RELEASE TAB PO SCH (09:03)
[2016-08-19] MEDS: POTASSIUM CHLORIDE 20 MEQ CONTROLLED RELEASE TAB PO SCH (09:06)
[2016-08-19] MEDS: GABAPENTIN 400 MG CAP PO SCH ×3 (09:07→20:33)
--- NOTE | 2016-08-19 11:05 | HHI.PR ---
Subjective Remarks Follow-up for shortness of breath Still requiring a lot of oxygen, nonrebreather. Started using incentive spirometry. Afebrile. No chest pain. Objective Vitals Vital Signs Date Time Temp Pulse Resp B/P Pulse Ox O2 Delivery O2 Flow Rate FiO2 08/19/16 10:00 92 08/19/16 09:00 77 08/19/16 08:39 95 Non-Rebreather 12.00 100 08/19/16 08:00 74 08/19/16 07:00 98.7 75 18 136/70 99 08/19/16 07:00 99 Partial Non-Rebreather 12.00 08/19/16 07:00 84 08/19/16 06:00 74 08/19/16 05:00 72 08/19/16 04:25 93 35 08/19/16 04:00 72 08/19/16 03:00 75 08/19/16 03:00 94 Bi-Pap 35 08/19/16 03:00 98.1 73 24 129/66 94 08/19/16 02:00 73 08/19/16 01:01 95 35 08/19/16 01:00 84 08/19/16 00:00 79 08/18/16 23:00 98.2 80 21 139/69 96 08/18/16 23:00 98 Bi-Pap 40 08/18/16 23:00 78 08/18/16 22:00 84 08/18/16 21:33 93 40 08/18/16 21:01 96 Non-Rebreather 12.00 08/18/16 21:00 81 08/18/16 20:00 82 08/18/16 19:00 98.4 80 18 129/72 96 08/18/16 19:00 78 08/18/16 19:00 Partial Non-Rebreather 12.00 08/18/16 18:00 90 08/18/16 17:00 87 08/18/16 16:00 88 08/18/16 15:00 97.9 83 20 110/60 97 08/18/16 15:00 100 Partial Non-Rebreather 12.00 08/18/16 15:00 96 08/18/16 14:00 83 08/18/16 13:00 88 08/18/16 12:15 99 Partial Non-Rebreather 15.00 08/18/16 12:00 90 Venturi Mask 6.00 50 08/18/16 12:00 88 I/O 08/18/16 08/18/16 08/18/16 08/19/16 08/19/16 08/19/16 06:59 14:59 22:59 06:59 14:59 22:59 Intake Total 340 ml 1060 ml 345 ml Output Total 500 ml 900 ml 1000 ml Balance -160 ml 160 ml -655 ml Intake Oral 240 ml 960 ml 240 ml IV Total 100 ml 100 ml 105 ml Output Urine Total 500 ml 900 ml 1000 ml # Bowel Movements 0 1 0 Result Diagram: 08/17/16 0604 08/19/16 0249 Objective Remarks Not in distress, appears anxious, on nonrebreather. PERRL, pink conjunctiva without injection, anicteric Nose without bleeding, airway patent, oropharynx clear Supple neck, no masses or thyromegaly, trachea midline Normal rate and regular rhythm, no murmurs gallops or rubs appreciated. Decreased breath sounds symmetrically, no wheezing Normal bowel sounds, soft, non-tender, nondistended, no guarding. Extremities without clubbing, cyanosis, or edema. No rash of generalized distribution. Skin is warm and dry. AAO x3, no cranial nerve deficits, moves all 4 extremities, no focal neurologic deficits Mildly anxious. A/P Assessment and Plan 60 years old female admitted for shortness of breath Acute respiratory failure, possible COPD exacerbation-patient had desaturation this morning, was placed on nonrebreather and BiPAP transiently, I ordered repeat ABG which is good, showed hypoxemia with wide gradient, continue oxygen support, pulmonary consulted, discussed with pulmonary today, recent question for atypical pneumonia, per pulmonary, does not need any infectious disease consultation. Canceled consult for ID. Discussed with Dr. Mckeon from infectious disease. CT negative for PE, continue intravenous steroids and antibiotics for now. CT scan of the chest showed bilateral infiltrates which is improved from previous. Rheumatoid factor negative. Continue cefepime and Flagyl. Continue incentive spirometry. Discussed with patient. Mild CHF- chest x-ray personally reviewed showed pulmonary edema, BNP normal, continue Lasix, BMP stable. Records reviewed, showed an ejection fraction of 65 % with possible diastolic heart failure, echocardiogram done August 06. Leukocytosis-likely secondary to steroids history of Depression- on Prozac history of chronic back pain, neuropathy - gabapentin history of HTN- on HCTZ/GAYATHRI Anxiety-start Xanax as needed. Constipation- continue bisacodyl Lovenox for DVT prophylaxis Discharge to [facility] when ready. Tuyet Cartagena MD Aug 19, 2016 11:05
[2016-08-19] MEDS: traMADol HCL 50 MG TAB PO PRN ×2 (13:26→20:34)
[2016-08-19] MEDS: ENOXAPARIN SODIUM 40 MG/0.4 ML SYRINGE SQ SCH (17:00)
[2016-08-19] MEDS: PRAVASTATIN SOD 80 MG TAB PO SCH (18:08)
--- NOTE | 2016-08-19 18:38 | HHI.PR ---
Subjective Remarks Less cough and wheezing. Now On a ventimask at 50 %. No fever. Has some pulmonary edema on CXR. No fever. Objective Vital Signs Date Time Temp Pulse Resp B/P Pulse Ox O2 Delivery O2 Flow Rate FiO2 08/19/16 17:02 95 Nasal Cannula 4.00 08/19/16 17:00 82 08/19/16 16:25 20 08/19/16 16:00 77 08/19/16 15:00 98.5 81 20 103/63 95 08/19/16 15:00 95 Partial Non-Rebreather 5.00 Nasal Cannula Humidified 08/19/16 15:00 84 08/19/16 14:00 80 08/19/16 13:00 85 08/19/16 12:45 95 Nasal Cannula 5.00 Humidified 08/19/16 12:15 99 Venturi Mask 6.00 50 08/19/16 12:00 81 08/19/16 11:00 90 08/19/16 11:00 99 Partial Non-Rebreather 12.00 08/19/16 11:00 98.0 87 20 111/65 97 08/19/16 10:00 92 08/19/16 09:00 77 08/19/16 08:39 95 Non-Rebreather 12.00 100 08/19/16 08:00 74 08/19/16 07:00 98.7 75 18 136/70 99 08/19/16 07:00 99 Partial Non-Rebreather 12.00 08/19/16 07:00 84 08/19/16 06:00 74 08/19/16 05:00 72 08/19/16 04:25 93 35 08/19/16 04:00 72 08/19/16 03:00 75 08/19/16 03:00 94 Bi-Pap 35 08/19/16 03:00 98.1 73 24 129/66 94 08/19/16 02:00 73 08/19/16 01:01 95 35 08/19/16 01:00 84 08/19/16 00:00 79 08/18/16 23:00 98.2 80 21 139/69 96 08/18/16 23:00 98 Bi-Pap 40 08/18/16 23:00 78 08/18/16 22:00 84 08/18/16 21:33 93 40 08/18/16 21:01 96 Non-Rebreather 12.00 08/18/16 21:00 81 08/18/16 20:00 82 08/18/16 19:00 98.4 80 18 129/72 96 08/18/16 19:00 78 08/18/16 19:00 Partial Non-Rebreather 12.00 I/O 08/18/16 08/18/16 08/18/16 08/19/16 08/19/16 08/19/16 07:00 15:00 23:00 07:00 15:00 23:00 Intake Total 340 ml 1060 ml 345 ml 1030 ml Output Total 500 ml 900 ml 1000 ml 1000 ml Balance -160 ml 160 ml -655 ml 30 ml Intake Oral 240 ml 960 ml 240 ml 930 ml IV Total 100 ml 100 ml 105 ml 100 ml Output Urine Total 500 ml 900 ml 1000 ml 1000 ml # Bowel Movements 0 1 0 2 Result Diagram: 08/17/16 0604 08/19/16 0249 Objective Remarks Well built Mid aged W/F alert and in no distress HEENT: Exam unremarkable. Eyes without icterus. NECK: Without adenopathy or thyroid enlargement. Central trachea. CHEST:.Occ basal crackles.Distant breath sounds.Occ wheeze. CARDIOVASCULAR: Examination PMI distant. S1-S2 audible. 1/6 ejection systolic murmur left sternal border. ABDOMEN: Lax, bowel sounds audible.No mass. EXTREMITIES: No clubbing, cyanosis or edema. SKIN: Normal. No lymphadenopathy. Assessment and Plan Assessment and Plan IMPRESSION 1. Respiratory failure. 2. Pneumonia. 3. Question congestive heart failure. 4. Obesity. 5. Tobacco abuse. 6. COPD with Acute exacerbation. Plan: 1. Cefipime 1 gm IV BID. 2. Flagyl 500 mg PO tid. 3. nebs qid , duoneb. 4. Wean O2 to Ventimask 50% 5. duonebs qid. 6. D/C Solumedrol 7. D/C Bipap and wean O2 to N/C 5 L. 6. Cont Lasix 20 mg and Kcl 20 Meq daily. Mario Damon MD Aug 19, 2016 18:38
[2016-08-19] MEDS: predniSONE 20 MG TAB PO SCH (20:33)
[2016-08-19] MEDS: ZOLPIDEM TARTRATE 5 MG TAB PO SCH (20:33)
[2016-08-20] VITALS (19 sets, daily range): BP systolic 113–132; BP diastolic 56–68; PULSE 68–92; RESP 16–20; TEMP 96.3–98.4; O2SAT 90–96
[2016-08-20] MEDS: CEFEPIME INJ 1,000 MG in SODIUM CHLORIDE 0.9% INJ 100 ML IV SCH ×2 (04:24→16:32)
[2016-08-20] MEDS: traMADol HCL 50 MG TAB PO PRN ×2 (04:37→16:45)
[2016-08-20] MEDS: RESP: ALBUTEROL 2.5 MG/IPRATROPIUM 0.5 MG NEB (SCH) NEB ×3 (05:11→16:02)
[2016-08-20] MEDS: metroNIDAZOLE 500 MG TAB PO SCH ×3 (05:49→20:50)
--- NOTE | 2016-08-20 06:08 | RADRPT ---
EXAM DATE/TIME: 08/20/2016 05:20 [place] COMPARISON: CHEST SINGLE AP, August 17, 2016, 1:43. INDICATIONS : Edema. MEDICAL HISTORY : Hypertension. Cardiovascular disease. SURGICAL HISTORY : Fusion, lumbar. ENCOUNTER: Initial ACUITY: 1 day PAIN SCORE: Non-responsive. LOCATION: FINDINGS: A single view of the chest demonstrates diffuse interstitial opacities. Heart borderline enlarged.. The cardiomediastinal contours are unremarkable. Osseous structures are intact. CONCLUSION: Diffuse interstitial opacities likely interstitial edema, unchanged. Jona Mari MD on August 20, 2016 at 6:05 Board Certified Radiologist. This report was verified electronically.
[2016-08-20] MEDS: PANTOPRAZOLE SOD 40 MG DELAYED RELEASE TAB PO SCH (09:32)
[2016-08-20] MEDS: LISINOPRIL 10 MG TAB PO SCH (09:32)
[2016-08-20] MEDS: HYDROCHLOROTHIAZIDE 25 MG TAB PO SCH (09:32)
[2016-08-20] MEDS: predniSONE 20 MG TAB PO SCH ×2 (09:33→20:40)
[2016-08-20] MEDS: FLUoxetine HCL 20 MG CAP PO SCH (09:33)
[2016-08-20] MEDS: POTASSIUM CHLORIDE 20 MEQ CONTROLLED RELEASE TAB PO SCH (09:33)
[2016-08-20] MEDS: FUROSEMIDE 20 MG TAB PO SCH (09:33)
[2016-08-20] MEDS: DICLOFENAC SODIUM 75 MG DELAYED RELEASE TAB PO SCH ×2 (09:33→20:40)
[2016-08-20] MEDS: SODIUM CHLORIDE 0.9% FLUSH 5 ML FLUSH FLUSH SCH ×2 (09:34→20:41)
[2016-08-20] MEDS: GABAPENTIN 400 MG CAP PO SCH ×3 (09:36→20:39)
--- NOTE | 2016-08-20 10:01 | HHI.PR ---
Subjective Remarks Follow-up for shortness of breath Shortness of breath better now, off nonrebreather, nasal cannula. Less cough. Afebrile. No overnight event,feels better. Objective Vitals Vital Signs Date Time Temp Pulse Resp B/P Pulse Ox O2 Delivery O2 Flow Rate FiO2 08/20/16 08:48 90 Nasal Cannula 5.00 08/20/16 08:38 97.9 80 20 132/68 92 08/20/16 08:38 92 Nasal Cannula 5.00 08/20/16 07:00 80 08/20/16 06:00 82 08/20/16 05:00 85 08/20/16 04:00 80 08/20/16 03:00 98.4 92 17 117/68 96 08/20/16 03:00 96 Nasal Cannula 5.00 08/20/16 03:00 68 08/20/16 02:00 75 08/20/16 01:00 80 08/20/16 00:00 75 08/19/16 23:00 98.6 81 18 104/52 92 08/19/16 23:00 78 08/19/16 23:00 94 Nasal Cannula 5.00 08/19/16 22:00 80 08/19/16 21:00 81 08/19/16 20:00 85 08/19/16 19:23 95 Nasal Cannula 5.00 08/19/16 19:00 74 08/19/16 19:00 98.9 86 17 112/52 97 08/19/16 19:00 97 Nasal Cannula 5.00 08/19/16 18:00 81 08/19/16 17:02 95 Nasal Cannula 4.00 08/19/16 17:00 82 08/19/16 16:25 20 08/19/16 16:00 77 08/19/16 15:00 98.5 81 20 103/63 95 08/19/16 15:00 95 Partial Non-Rebreather 5.00 Nasal Cannula Humidified 08/19/16 15:00 84 08/19/16 14:00 80 08/19/16 13:00 85 08/19/16 12:45 95 Nasal Cannula 5.00 Humidified 08/19/16 12:15 99 Venturi Mask 6.00 50 08/19/16 12:00 81 08/19/16 11:00 90 08/19/16 11:00 99 Partial Non-Rebreather 12.00 08/19/16 11:00 98.0 87 20 111/65 97 I/O 08/19/16 08/19/16 08/19/16 08/20/16 08/20/16 08/20/16 07:00 15:00 23:00 07:00 15:00 23:00 Intake Total 345 ml 1030 ml 590 ml Output Total 1000 ml 1000 ml 1200 ml Balance -655 ml 30 ml -610 ml Intake Oral 240 ml 930 ml 480 ml IV Total 105 ml 100 ml 110 ml Output Urine Total 1000 ml 1000 ml 1200 ml # Bowel Movements 0 2 Result Diagram: 08/17/16 0604 08/19/16 0249 Objective Remarks Not in distress, appears anxious, on nasal cannula. PERRL, pink conjunctiva without injection, anicteric Nose without bleeding, airway patent, oropharynx clear Supple neck, no masses or thyromegaly, trachea midline Normal rate and regular rhythm, no murmurs gallops or rubs appreciated. Decreased breath sounds symmetrically, no wheezing Normal bowel sounds, soft, non-tender, nondistended, no guarding. Extremities without clubbing, cyanosis, or edema. No rash of generalized distribution. Skin is warm and dry. AAO x3, no cranial nerve deficits, moves all 4 extremities, no focal neurologic deficits A/P Assessment and Plan 60 years old female admitted for shortness of breath Acute respiratory failure, possible COPD exacerbation-patient had desaturation this morning, was placed on nonrebreather and BiPAP transiently, I ordered repeat ABG which is good, showed hypoxemia with wide gradient, continue oxygen support, pulmonary consulted, discussed with pulmonary today, recent question for atypical pneumonia, per pulmonary, does not need any infectious disease consultation. Canceled consult for ID. Discussed with Dr. Mckeon from infectious disease. CT negative for PE, continue steroids, switched to oral, continue cefepime and Flagyl for now. CT scan of the chest showed bilateral infiltrates which is improved from previous. Rheumatoid factor negative. C Mild CHF- chest x-ray personally reviewed showed pulmonary edema, BNP normal, continue Lasix, BMP stable. Records reviewed, showed an ejection fraction of 65 % with possible diastolic heart failure, echocardiogram done August 06. Continue potassium chloride. Leukocytosis-likely secondary to steroids history of Depression- on Prozac history of chronic back pain, neuropathy - gabapentin history of HTN- on HCTZ/GAYATHRI Anxiety-start Xanax as needed. Constipation- continue bisacodyl Lovenox for DVT prophylaxis Transfer to [facility] Discharge to assisted when ready. Discharge Planning Discharged to SNF in 1-2 days, discussed with case management. Tuyet Cartagena MD Aug 20, 2016 10:01
[2016-08-20] MEDS: ENOXAPARIN SODIUM 40 MG/0.4 ML SYRINGE SQ SCH (16:39)
--- NOTE | 2016-08-20 18:45 | HHI.PR ---
Subjective Remarks Less cough and wheezing. Now On a N/C 5L.. No fever. Has some pulmonary edema on CXR. walked with help. Objective Vital Signs Date Time Temp Pulse Resp B/P Pulse Ox O2 Delivery O2 Flow Rate FiO2 08/20/16 17:45 18 08/20/16 16:00 96.3 87 16 119/56 91 08/20/16 15:00 Nasal Cannula 5.00 08/20/16 12:00 97.7 84 18 113/62 92 08/20/16 12:00 81 08/20/16 11:54 97.9 89 20 119/57 91 08/20/16 11:54 91 Nasal Cannula 5.00 08/20/16 11:00 90 08/20/16 10:00 79 08/20/16 09:00 87 08/20/16 08:48 90 Nasal Cannula 5.00 08/20/16 08:38 97.9 80 20 132/68 92 08/20/16 08:38 92 Nasal Cannula 5.00 08/20/16 08:00 76 08/20/16 07:00 80 08/20/16 06:00 82 08/20/16 05:00 85 08/20/16 04:00 80 08/20/16 03:00 98.4 92 17 117/68 96 08/20/16 03:00 96 Nasal Cannula 5.00 08/20/16 03:00 68 08/20/16 02:00 75 08/20/16 01:00 80 08/20/16 00:00 75 08/19/16 23:00 98.6 81 18 104/52 92 08/19/16 23:00 78 08/19/16 23:00 94 Nasal Cannula 5.00 08/19/16 22:00 80 08/19/16 21:00 81 08/19/16 20:00 85 08/19/16 19:23 95 Nasal Cannula 5.00 08/19/16 19:00 74 08/19/16 19:00 98.9 86 17 112/52 97 08/19/16 19:00 97 Nasal Cannula 5.00 I/O 08/19/16 08/19/16 08/19/16 08/20/16 08/20/16 08/20/16 06:59 14:59 22:59 06:59 14:59 22:59 Intake Total 345 ml 1030 ml 590 ml 480 ml 100 ml Output Total 1000 ml 1000 ml 1200 ml Balance -655 ml 30 ml -610 ml 480 ml 100 ml Intake Oral 240 ml 930 ml 480 ml 480 ml IV Total 105 ml 100 ml 110 ml 100 ml Output Urine Total 1000 ml 1000 ml 1200 ml # Voids 2 # Bowel Movements 0 2 Result Diagram: 08/17/16 0604 08/19/16 0249 Objective Remarks Well built Mid aged W/F alert and in no distress HEENT: Exam unremarkable. Eyes without icterus. NECK: Without adenopathy or thyroid enlargement. Central trachea. CHEST:.Occ basal crackles.Distant breath sounds. Bilateral wheeze. CARDIOVASCULAR: Examination PMI distant. S1-S2 audible. 1/6 ejection systolic murmur left sternal border. ABDOMEN: Soft ,bowel sounds audible.No mass. EXTREMITIES: No clubbing, cyanosis or edema. SKIN: Normal. No lymphadenopathy. Assessment and Plan Assessment and Plan IMPRESSION 1. Respiratory failure. 2. Pneumonia. 3. Question congestive heart failure. 4. Obesity. 5. Tobacco abuse. 6. COPD with Acute exacerbation. Plan: 1. Cefipime 1 gm IV BID. 2. Flagyl 500 mg PO tid. 3. nebs qid , duoneb. 4. Wean O2 to N/C 5 L 5. duonebs qid. 6. Prednisone 20 mg bid 7. Cont Bipap 12/5 , FIO2 35 5 at HS 6. Cont Lasix 20 mg and Kcl 20 Meq daily. Mario Damon MD Aug 20, 2016 18:45
[2016-08-20] MEDS: PRAVASTATIN SOD 80 MG TAB PO SCH (19:29)
[2016-08-20] MEDS: ZOLPIDEM TARTRATE 5 MG TAB PO SCH (20:40)
[2016-08-21] VITALS (9 sets, daily range): BP systolic 102–146; BP diastolic 53–81; PULSE 73–92; RESP 16–20; TEMP 96.1–97.7; O2SAT 90–98
[2016-08-21] MEDS: CEFEPIME INJ 1,000 MG in SODIUM CHLORIDE 0.9% INJ 100 ML IV SCH ×2 (03:27→13:52)
[2016-08-21] MEDS: metroNIDAZOLE 500 MG TAB PO SCH ×4 (06:00→20:47)
[2016-08-21] MEDS: FLUoxetine HCL 20 MG CAP PO SCH (10:44)
[2016-08-21] MEDS: SODIUM CHLORIDE 0.9% FLUSH 5 ML FLUSH FLUSH SCH ×2 (10:44→20:48)
[2016-08-21] MEDS: PANTOPRAZOLE SOD 40 MG DELAYED RELEASE TAB PO SCH (10:44)
[2016-08-21] MEDS: DICLOFENAC SODIUM 75 MG DELAYED RELEASE TAB PO SCH ×2 (10:44→20:47)
[2016-08-21] MEDS: LISINOPRIL 10 MG TAB PO SCH (10:44)
[2016-08-21] MEDS: predniSONE 20 MG TAB PO SCH ×2 (10:45→20:47)
[2016-08-21] MEDS: HYDROCHLOROTHIAZIDE 25 MG TAB PO SCH (10:45)
[2016-08-21] MEDS: POTASSIUM CHLORIDE 20 MEQ CONTROLLED RELEASE TAB PO SCH (10:46)
[2016-08-21] MEDS: GABAPENTIN 400 MG CAP PO SCH ×3 (10:49→20:48)
[2016-08-21] MEDS: RESP: ALBUTEROL 2.5 MG/IPRATROPIUM 0.5 MG NEB (PRN) NEB ×3 (11:20→21:42)
--- NOTE | 2016-08-21 13:25 | HHI.PR ---
Subjective Remarks Follow-up for shortness of breath Shortness of breath better today, better each day, less coughing. Wants to be on a regular diet, slightly constipated. Good urine output. Blood pressure systolic in the 140s, denies any headache. Objective Vitals Vital Signs Date Time Temp Pulse Resp B/P Pulse Ox O2 Delivery O2 Flow Rate FiO2 08/21/16 11:40 97.7 92 20 110/58 92 08/21/16 11:23 91 Nasal Cannula 5.00 08/21/16 07:53 96.1 73 20 142/81 95 08/21/16 04:20 97 35 08/21/16 04:00 97.2 76 16 146/63 98 08/21/16 00:00 97.3 78 20 115/59 96 08/20/16 22:09 94 Nasal Cannula 4.50 08/20/16 22:09 94 35 08/20/16 21:02 92 Nasal Cannula 5.00 08/20/16 20:00 97.8 79 18 118/67 92 08/20/16 17:45 18 08/20/16 16:00 96.3 87 16 119/56 91 08/20/16 15:00 Nasal Cannula 5.00 I/O 08/20/16 08/20/16 08/20/16 08/21/16 08/21/16 08/21/16 06:59 14:59 22:59 06:59 14:59 22:59 Intake Total 590 ml 480 ml 820 ml 240 ml Output Total 1200 ml Balance -610 ml 480 ml 820 ml 240 ml Intake Oral 480 ml 480 ml 720 ml 240 ml IV Total 110 ml 100 ml Output Urine Total 1200 ml # Voids 5 2 Result Diagram: 08/17/16 0604 08/19/16 0249 Objective Remarks Not in distress, appears anxious, on nasal cannula. PERRL, pink conjunctiva without injection, anicteric Nose without bleeding, airway patent, oropharynx clear Supple neck, no masses or thyromegaly, trachea midline Normal rate and regular rhythm, no murmurs gallops or rubs appreciated. Decreased breath sounds symmetrically, occasional crackles at both bases. Normal bowel sounds, soft, non-tender, nondistended, no guarding. Extremities without clubbing, cyanosis, or edema. No rash of generalized distribution. Skin is warm and dry. AAO x3, no cranial nerve deficits, moves all 4 extremities, no focal neurologic deficits A/P Assessment and Plan 60 years old female admitted for shortness of breath Acute respiratory failure, possible COPD exacerbation-patient had desaturation this morning, was placed on nonrebreather and BiPAP transiently, I ordered repeat ABG which is good, showed hypoxemia with wide gradient, continue oxygen support, pulmonary consulted, discussed with pulmonary today, recent question for atypical pneumonia, per pulmonary, does not need any infectious disease consultation. Canceled consult for ID. Discussed with Dr. Mckeon from infectious disease. CT negative for PE, continue steroids, continue cefepime and Flagyl for now finish on 08/23/16.. CT scan of the chest showed bilateral infiltrates which is improved from previous. Rheumatoid factor negative. Decrease prednisone if okay with pulmonary. Mild CHF- chest x-ray personally reviewed showed pulmonary edema, BNP normal, increase Lasix to twice a day, BMP stable. Recheck BMP tomorrow. Records reviewed, showed an ejection fraction of 65% with possible diastolic heart failure, echocardiogram done August 06. Continue potassium chloride. Leukocytosis-likely secondary to steroids history of Depression- on Prozac history of chronic back pain, neuropathy - gabapentin history of HTN- on HCTZ/GAYATHRI Anxiety-start Xanax as needed. Constipation- continue bisacodyl, start Metamucil every day as needed. Regular diet. Lovenox for DVT prophylaxis Discharge to [facility] when ready. Discharge Planning Discharged to SNF in 1-2 days, discussed with case management. Tuyet Cartagena MD Aug 21, 2016 13:25
[2016-08-21] MEDS ORDERED: PSYLLIUM FIBER SF/GF 6 GM POWD PKT PO PRN (13:30)
[2016-08-21] MEDS: traMADol HCL 50 MG TAB PO PRN (13:51)
[2016-08-21] MEDS: FUROSEMIDE 20 MG TAB PO SCH (16:00)
[2016-08-21] MEDS: ENOXAPARIN SODIUM 40 MG/0.4 ML SYRINGE SQ SCH (17:00)
[2016-08-21] MEDS: PRAVASTATIN SOD 80 MG TAB PO SCH (18:00)
--- NOTE | 2016-08-21 18:08 | HHI.PR ---
Subjective Remarks No cough and less wheezing. Now On a N/C 3 L.. No fever. walked in le. Objective Vital Signs Date Time Temp Pulse Resp B/P Pulse Ox O2 Delivery O2 Flow Rate FiO2 08/21/16 15:10 92 Nasal Cannula 5.00 08/21/16 15:00 97.4 75 20 110/53 96 08/21/16 11:40 97.7 92 20 110/58 92 08/21/16 11:23 91 Nasal Cannula 5.00 08/21/16 07:53 96.1 73 20 142/81 95 08/21/16 04:20 97 35 08/21/16 04:00 97.2 76 16 146/63 98 08/21/16 00:00 97.3 78 20 115/59 96 08/20/16 22:09 94 Nasal Cannula 4.50 08/20/16 22:09 94 35 08/20/16 21:02 92 Nasal Cannula 5.00 08/20/16 20:00 97.8 79 18 118/67 92 I/O 08/20/16 08/20/16 08/20/16 08/21/16 08/21/16 08/21/16 06:59 14:59 22:59 06:59 14:59 22:59 Intake Total 590 ml 480 ml 820 ml 240 ml Output Total 1200 ml Balance -610 ml 480 ml 820 ml 240 ml Intake Oral 480 ml 480 ml 720 ml 240 ml IV Total 110 ml 100 ml Output Urine Total 1200 ml # Voids 5 2 Result Diagram: 08/17/16 0604 08/19/16 0249 Objective Remarks Well built Mid aged W/F alert and in no distress HEENT: Exam unremarkable. Eyes without icterus. NECK: Without adenopathy or thyroid enlargement. Central trachea. CHEST:.Occ basal crackles.Distant breath sounds. Occ Bilateral wheeze. CARDIOVASCULAR: Examination PMI distant. S1-S2 audible. 1/6 ejection systolic murmur left sternal border. ABDOMEN: Soft ,bowel sounds audible.No mass. EXTREMITIES: No clubbing, cyanosis or edema. SKIN: Normal. No lymphadenopathy. Assessment and Plan Assessment and Plan IMPRESSION 1. Respiratory failure. 2. Pneumonia. 3. Question congestive heart failure. 4. Obesity. 5. Tobacco abuse. 6. COPD with Acute exacerbation. Plan: 1. D/C Cefipime 2. Flagyl 500 mg PO tid. 3. nebs qid , duoneb. 4. Wean O2 to N/C 3 L 5. duonebs qid. 6. Prednisone 20 mg bid 7. Cont Bipap 12/5 , FIO2 35 5 at HS 6. Cont Lasix 20 mg and Kcl 20 Meq daily. 7. Add Ceftin 500 mg bid X 7 days Mario Damon MD Aug 21, 2016 18:08
[2016-08-21] MEDS: CEFUROXIME AXETIL 500 MG TAB PO SCH (20:46)
[2016-08-21] MEDS: ZOLPIDEM TARTRATE 5 MG TAB PO SCH (20:47)
[2016-08-22] VITALS (11 sets, daily range): BP systolic 95–110; BP diastolic 51–66; PULSE 73–91; RESP 16–19; TEMP 96.7–98.2; O2SAT 91–97
[2016-08-22] MEDS: RESP: ALBUTEROL 2.5 MG/IPRATROPIUM 0.5 MG NEB (PRN) NEB ×4 (04:07→20:44)
[2016-08-22] MEDS: metroNIDAZOLE 500 MG TAB PO SCH ×3 (05:13→21:15)
[2016-08-22 07:55] LABS: BICARBONATE 30.2 MEQ/L (21.0-32.0); POTASSIUM 4.1 MEQ/L (3.5-5.1)
[2016-08-22] MEDS: DICLOFENAC SODIUM 75 MG DELAYED RELEASE TAB PO SCH ×2 (08:48→21:15)
[2016-08-22] MEDS: LISINOPRIL 10 MG TAB PO SCH (08:49)
[2016-08-22] MEDS: SODIUM CHLORIDE 0.9% FLUSH 5 ML FLUSH FLUSH SCH ×2 (08:49→21:00)
[2016-08-22] MEDS: CEFUROXIME AXETIL 500 MG TAB PO SCH ×2 (08:49→21:15)
[2016-08-22] MEDS: predniSONE 20 MG TAB PO SCH ×2 (08:49→21:15)
[2016-08-22] MEDS: HYDROCHLOROTHIAZIDE 25 MG TAB PO SCH (08:49)
[2016-08-22] MEDS: POTASSIUM CHLORIDE 20 MEQ CONTROLLED RELEASE TAB PO SCH (08:49)
[2016-08-22] MEDS: PANTOPRAZOLE SOD 40 MG DELAYED RELEASE TAB PO SCH (08:49)
[2016-08-22] MEDS: FLUoxetine HCL 20 MG CAP PO SCH (08:54)
[2016-08-22] MEDS: FUROSEMIDE 20 MG TAB PO SCH ×2 (08:54→17:36)
[2016-08-22] MEDS: GABAPENTIN 400 MG CAP PO SCH ×3 (08:54→21:15)
--- NOTE | 2016-08-22 11:00 | HHI.PR ---
Subjective Remarks Follow-up for shortness of breath No overnight events, shortness of breath still better, afebrile. Still coughing. On nasal cannula. Objective Vitals Vital Signs Date Time Temp Pulse Resp B/P Pulse Ox O2 Delivery O2 Flow Rate FiO2 08/22/16 08:57 Nasal Cannula 5.00 35 08/22/16 08:23 91 Nasal Cannula 4.00 08/22/16 08:00 97.7 73 18 110/66 96 08/22/16 04:05 97 35 08/22/16 04:00 97.8 82 17 98/51 93 08/22/16 00:30 96 35 08/22/16 00:00 98.2 88 16 103/52 91 08/21/16 21:43 90 5.00 08/21/16 20:00 96.9 81 17 102/55 93 08/21/16 15:10 92 Nasal Cannula 5.00 08/21/16 15:00 97.4 75 20 110/53 96 08/21/16 11:40 97.7 92 20 110/58 92 08/21/16 11:23 91 Nasal Cannula 5.00 I/O 08/21/16 08/21/16 08/21/16 08/22/16 08/22/16 08/22/16 07:00 15:00 23:00 07:00 15:00 23:00 Intake Total 240 ml 240 ml 720 ml 240 ml Output Total 600 ml Balance 240 ml 240 ml 720 ml -360 ml Intake Oral 240 ml 240 ml 720 ml 240 ml Output Urine Total 600 ml # Voids 2 4 3 # Bowel Movements 1 Result Diagram: 08/22/16 0704 Objective Remarks Not in distress, appears anxious, on nasal cannula. PERRL, pink conjunctiva without injection, anicteric Nose without bleeding, airway patent, oropharynx clear Supple neck, no masses or thyromegaly, trachea midline Normal rate and regular rhythm, no murmurs gallops or rubs appreciated. Decreased breath sounds symmetrically, otherwise clear, no wheezing or crackles. Normal bowel sounds, soft, non-tender, nondistended, no guarding. Extremities without clubbing, cyanosis, or edema. No rash of generalized distribution. Skin is warm and dry. AAO x3, no cranial nerve deficits, moves all 4 extremities, no focal neurologic deficits A/P Assessment and Plan 60 years old female admitted for shortness of breath Acute respiratory failure, possible COPD exacerbation-patient had desaturation this morning, was placed on nonrebreather and BiPAP transiently, I ordered repeat ABG which is good, showed hypoxemia with wide gradient, continue oxygen support, pulmonary consulted, discussed with pulmonary today, recent question for atypical pneumonia, per pulmonary, does not need any infectious disease consultation. CT negative for PE, continue steroids, cefepime stopped, continue continue Flagyl orally, started on Ceftin. Finish on 08/23/16. CT scan of the chest showed bilateral infiltrates which is improved from previous. Rheumatoid factor negative. Decrease prednisone if okay with pulmonary. Mild CHF- chest x-ray personally reviewed showed pulmonary edema, BNP normal, continue Lasix twice a day, Recheck BMP tomorrow. Records reviewed, showed an ejection fraction of 65% with possible diastolic heart failure, echocardiogram done August 06. Continue potassium chloride. Leukocytosis-likely secondary to steroids history of Depression- on Prozac history of chronic back pain, neuropathy - gabapentin history of HTN- on HCTZ/GAYATHRI Anxiety-start Xanax as needed. Constipation- continue bisacodyl, start Metamucil every day as needed. Regular diet. Lovenox for DVT prophylaxis Discharge to senior living when ready. Discharge Planning Discharged to SNF in 1-2 days, Tuesday or Tuesday after cleared by pulmonary. Tuyet Cartagena MD Aug 22, 2016 11:00
[2016-08-22] MEDS: traMADol HCL 50 MG TAB PO PRN ×2 (13:02→21:19)
--- NOTE | 2016-08-22 14:41 | HHI.PR ---
Subjective Remarks No cough and less wheezing. Now On a N/C 4 L.. No fever. Good output. Objective Vital Signs Date Time Temp Pulse Resp B/P Pulse Ox O2 Delivery O2 Flow Rate FiO2 08/22/16 08:57 Nasal Cannula 5.00 35 08/22/16 08:23 91 Nasal Cannula 4.00 08/22/16 08:00 97.7 73 18 110/66 96 08/22/16 04:05 97 35 08/22/16 04:00 97.8 82 17 98/51 93 08/22/16 00:30 96 35 08/22/16 00:00 98.2 88 16 103/52 91 08/21/16 21:43 90 5.00 08/21/16 20:00 96.9 81 17 102/55 93 08/21/16 15:10 92 Nasal Cannula 5.00 08/21/16 15:00 97.4 75 20 110/53 96 I/O 08/21/16 08/21/16 08/21/16 08/22/16 08/22/16 08/22/16 06:59 14:59 22:59 06:59 14:59 22:59 Intake Total 240 ml 240 ml 720 ml 240 ml Output Total 600 ml Balance 240 ml 240 ml 720 ml -360 ml Intake Oral 240 ml 240 ml 720 ml 240 ml Output Urine Total 600 ml # Voids 2 4 3 # Bowel Movements 1 Result Diagram: 08/22/16 0704 Objective Remarks Well built Mid aged W/F alert and in no distress HEENT: Exam unremarkable. Eyes without icterus. NECK: Without adenopathy or thyroid enlargement. Central trachea. CHEST:.Few basal crackles.Distant breath sounds. Occ Bilateral wheeze. CARDIOVASCULAR: Examination PMI distant. S1-S2 audible. ABDOMEN: Soft ,bowel sounds audible.No mass. EXTREMITIES: No clubbing, cyanosis or edema. SKIN: Normal. No lymphadenopathy. Assessment and Plan Assessment and Plan IMPRESSION 1. Respiratory failure. 2. Pneumonia. 3. Question congestive heart failure. 4. Obesity. 5. Tobacco abuse. 6. COPD with Acute exacerbation. Plan: 1. Cont PO ceftin for 1week. 2. Flagyl 500 mg PO tid 1 week.. 3. nebs qid , duoneb. 4. Wean O2 to N/C 3 L 5. duonebs qid. 6. Prednisone 20 mg bid 7. Cont Bipap 12/5 , FIO2 35 5 at HS 6. Cont Lasix 20 mg and Kcl 20 Meq daily. Mario Damon MD Aug 22, 2016 14:41
[2016-08-22] MEDS: ENOXAPARIN SODIUM 40 MG/0.4 ML SYRINGE SQ SCH (17:36)
[2016-08-22] MEDS: PRAVASTATIN SOD 80 MG TAB PO SCH (17:36)
[2016-08-22] MEDS: ZOLPIDEM TARTRATE 5 MG TAB PO SCH (21:15)
[2016-08-23] VITALS (11 sets, daily range): BP systolic 99–144; BP diastolic 53–65; PULSE 72–86; RESP 18–20; TEMP 97.2–98.5; O2SAT 92–99
[2016-08-23] MEDS: metroNIDAZOLE 500 MG TAB PO SCH ×3 (05:44→21:06)
[2016-08-23] MEDS: RESP: ALBUTEROL 2.5 MG/IPRATROPIUM 0.5 MG NEB (PRN) NEB ×3 (07:47→21:36)
[2016-08-23] MEDS: GABAPENTIN 400 MG CAP PO SCH ×3 (07:59→21:06)
[2016-08-23] MEDS: CEFUROXIME AXETIL 500 MG TAB PO SCH ×2 (07:59→21:05)
[2016-08-23] MEDS: DICLOFENAC SODIUM 75 MG DELAYED RELEASE TAB PO SCH ×2 (07:59→21:06)
[2016-08-23] MEDS: SODIUM CHLORIDE 0.9% FLUSH 5 ML FLUSH FLUSH SCH ×2 (07:59→21:10)
[2016-08-23] MEDS: FUROSEMIDE 20 MG TAB PO SCH ×2 (07:59→17:07)
[2016-08-23] MEDS: HYDROCHLOROTHIAZIDE 25 MG TAB PO SCH (08:00)
[2016-08-23] MEDS: LISINOPRIL 10 MG TAB PO SCH (08:00)
[2016-08-23] MEDS: PANTOPRAZOLE SOD 40 MG DELAYED RELEASE TAB PO SCH (08:00)
[2016-08-23] MEDS: POTASSIUM CHLORIDE 20 MEQ CONTROLLED RELEASE TAB PO SCH (08:00)
[2016-08-23] MEDS: FLUoxetine HCL 20 MG CAP PO SCH (08:00)
[2016-08-23] MEDS: predniSONE 20 MG TAB PO SCH ×2 (08:04→21:05)
[2016-08-23 08:28] LABS: BICARBONATE 30.9 MEQ/L (21.0-32.0); POTASSIUM 4.5 MEQ/L (3.5-5.1)
[2016-08-23] MEDS: traMADol HCL 50 MG TAB PO PRN ×2 (12:41→21:09)
--- NOTE | 2016-08-23 12:44 | HHI.PR ---
Subjective Remarks Follow for shortness of breath Shortness of breath better, still on 5 L of oxygen, not coughing, afebrile. Able to ambulate. Objective Vitals Vital Signs Date Time Temp Pulse Resp B/P Pulse Ox O2 Delivery O2 Flow Rate FiO2 08/23/16 08:20 Nasal Cannula 5.00 45 08/23/16 07:50 97.3 72 20 121/56 98 08/23/16 07:47 92 Nasal Cannula 5.00 08/23/16 04:45 95 45 08/23/16 04:00 97.7 81 20 99/57 99 08/23/16 00:58 95 45 08/23/16 00:00 97.2 82 20 107/53 95 08/22/16 22:00 93 45 08/22/16 20:44 96 Nasal Cannula 5.00 08/22/16 20:00 97.1 83 19 95/52 92 08/22/16 17:00 Nasal Cannula 4.50 08/22/16 16:00 96.7 91 16 95/52 92 I/O 08/22/16 08/22/16 08/22/16 08/23/16 08/23/16 08/23/16 07:00 15:00 23:00 07:00 15:00 23:00 Intake Total 240 ml 960 ml 480 ml 240 ml Output Total 600 ml 450 ml Balance -360 ml 960 ml 480 ml -210 ml Intake Oral 240 ml 960 ml 480 ml 240 ml Output Urine Total 600 ml 450 ml # Voids 5 4 # Bowel Movements 1 Result Diagram: 08/23/16 0720 Objective Remarks Not in distress, appears anxious, on nasal cannula. PERRL, pink conjunctiva without injection, anicteric Nose without bleeding, airway patent, oropharynx clear Supple neck, no masses or thyromegaly, trachea midline Normal rate and regular rhythm, no murmurs gallops or rubs appreciated. Decreased breath sounds symmetrically, otherwise clear, no wheezing or crackles. Normal bowel sounds, soft, non-tender, nondistended, no guarding. Extremities without clubbing, cyanosis, or edema. No rash of generalized distribution. Skin is warm and dry. AAO x3, no cranial nerve deficits, moves all 4 extremities, no focal neurologic deficits A/P Assessment and Plan 60 years old female admitted for shortness of breath Acute respiratory failure, possible COPD exacerbation- CT negative for PE, cefepime stopped, continue continue Flagyl orally, started on Ceftin. Finish after today. CT scan of the chest showed bilateral infiltrates which is improved from previous. Rheumatoid factor negative. Admitted patient. Continue incentive spirometry. Discussed extensively with pulmonary 08/23/16, Keep prednisone at 40 mg twice a day. Discharge was on 3 L of oxygen to rehabilitation. Mild CHF- chest x-ray personally reviewed showed pulmonary edema, BNP normal, continue Lasix twice a day, Recheck BMP tomorrow. Records reviewed, showed an ejection fraction of 65% with possible diastolic heart failure, echocardiogram done August 06. Continue potassium chloride. Blood pressure soft, monitor BMP tomorrow. Leukocytosis-likely secondary to steroids history of Depression- on Prozac history of chronic back pain, neuropathy - gabapentin history of HTN- continue lisinopril, hold hydrochlorothiazide given soft blood pressure. Anxiety-start Xanax as needed. Constipation- continue bisacodyl, Metamucil every day as needed. Regular diet. Lovenox for DVT prophylaxis Discharge to detention when ready. Discharge Planning Discharged to SNF once in 2 L of oxygen, cleared by pulmonary. Tuyet Cartagena MD Aug 23, 2016 12:44
[2016-08-23] MEDS: PRAVASTATIN SOD 80 MG TAB PO SCH (17:07)
[2016-08-23] MEDS: ENOXAPARIN SODIUM 40 MG/0.4 ML SYRINGE SQ SCH (17:07)
--- NOTE | 2016-08-23 18:22 | HHI.PR ---
Subjective Remarks Good progress No cough and less wheezing. Now On a N/C 4 L.. No fever. walks in halls Objective Vital Signs Date Time Temp Pulse Resp B/P Pulse Ox O2 Delivery O2 Flow Rate FiO2 08/23/16 15:45 98.5 82 20 116/55 94 08/23/16 14:56 Nasal Cannula 5.00 45 08/23/16 11:50 97.7 84 20 144/65 94 08/23/16 08:20 Nasal Cannula 5.00 45 08/23/16 07:50 97.3 72 20 121/56 98 08/23/16 07:47 92 Nasal Cannula 5.00 08/23/16 04:45 95 45 08/23/16 04:00 97.7 81 20 99/57 99 08/23/16 00:58 95 45 08/23/16 00:00 97.2 82 20 107/53 95 08/22/16 22:00 93 45 08/22/16 20:44 96 Nasal Cannula 5.00 08/22/16 20:00 97.1 83 19 95/52 92 I/O 08/22/16 08/22/16 08/22/16 08/23/16 08/23/16 08/23/16 07:00 15:00 23:00 07:00 15:00 23:00 Intake Total 240 ml 960 ml 480 ml 240 ml 480 ml Output Total 600 ml 450 ml Balance -360 ml 960 ml 480 ml -210 ml 480 ml Intake Oral 240 ml 960 ml 480 ml 240 ml 480 ml Output Urine Total 600 ml 450 ml # Voids 5 4 10 # Bowel Movements 1 1 Result Diagram: 08/23/16 0720 Objective Remarks Well built Mid aged W/F alert and in no distress HEENT: Exam unremarkable. Eyes without icterus. NECK: Without adenopathy or thyroid enlargement. Veins not distended CHEST:.Few basal crackles.Distant breath sounds. Occ Bilateral wheeze. CARDIOVASCULAR: Examination PMI distant. S1-S2 audible. ABDOMEN: Soft ,bowel sounds audible.No mass. EXTREMITIES: No clubbing, cyanosis or edema. SKIN: Normal. No lymphadenopathy. Assessment and Plan Assessment and Plan IMPRESSION 1. Respiratory failure. 2. Pneumonia. 3. Question congestive heart failure. 4. Obesity. 5. Tobacco abuse. 6. COPD with Acute exacerbation. Plan: 1. Cont PO ceftin for 1 week. 2. Flagyl 500 mg PO tid 1 week.. 3. nebs qid , duoneb. 4. Wean O2 to N/C 3 L 5. duonebs qid. 6. Prednisone 20 mg bid and taper. 7. Cont Bipap 12/5 , FIO2 35 5 at HS 6. Cont Lasix 20 mg and Kcl 20 Meq daily. Mario Damon MD Aug 23, 2016 18:22
[2016-08-23] MEDS: ZOLPIDEM TARTRATE 5 MG TAB PO SCH (21:35)
[2016-08-24] VITALS (10 sets, daily range): BP systolic 104–130; BP diastolic 55–79; PULSE 78–88; RESP 18–20; TEMP 96.2–97.9; O2SAT 91–100
[2016-08-24] MEDS: metroNIDAZOLE 500 MG TAB PO SCH (05:53)
--- NOTE | 2016-08-24 06:17 | RADRPT ---
EXAM DATE/TIME: 08/24/2016 05:08 [facility] COMPARISON: CHEST SINGLE AP, August 20, 2016, 5:20. INDICATIONS : Edema. MEDICAL HISTORY : Hypertension. Cardiovascular disease. SURGICAL HISTORY : Fusion, lumbar. ENCOUNTER: Subsequent ACUITY: 4 - 6 days PAIN SCORE: 0/10 LOCATION: Bilateral chest FINDINGS: The appearance of the chest is unchanged. Interstitial prominence is noted most pronounced in the lef t lung base. No effusions. Heart small enlarged. Scoliotic and degenerative spine. CONCLUSION: Unchanged appearance to the chest. David Tse Jr., MD on August 24, 2016 at 6:15 Board Certified Radiologist. This report was verified electronically.
[2016-08-24 07:54] LABS: AUTOMATED NEUTROPHIL # 9.8 TH/MM3 (1.8-7.7); BASOPHIL % 0.2 % (0.0-2.0); EOSINOPHIL # 0.3 TH/MM3 (0-0.4); EOSINOPHIL % 2.2 % (0.0-4.0); HEMATOCRIT 33.6 % (35.0-46.0); HEMO FLAGS DIFF FINAL; LYMPH % 9.5 % (9.0-44.0); LYMPHOCYTE # 1.1 TH/MM3 (1.0-4.8); MEAN CELL VOLUME 93.5 FL (80.0-100.0); MEAN CORPUSCULAR HEMOGLOBIN 31.4 PG (27.0-34.0); MEAN CORPUSCULAR HGB CONC 33.6 % (32.0-36.0); MONO % 5.4 % (0.0-8.0); NEUT % 82.7 % (16.0-70.0); PLATELET COUNT 230 TH/MM3 (150-450); RED BLOOD COUNT 3.59 MIL/MM3 (4.00-5.30); RED CELL DISTRIBUTION WIDTH 14.3 % (11.6-17.2); WHITE BLOOD COUNT 11.9 TH/MM3 (4.0-11.0)
[2016-08-24 08:16] LABS: BICARBONATE 29.6 MEQ/L (21.0-32.0); POTASSIUM 4.3 MEQ/L (3.5-5.1)
[2016-08-24] MEDS: RESP: ALBUTEROL 2.5 MG/IPRATROPIUM 0.5 MG NEB (PRN) NEB ×3 (08:33→22:01)
[2016-08-24] MEDS: predniSONE 20 MG TAB PO SCH ×2 (08:54→21:26)
[2016-08-24] MEDS: SODIUM CHLORIDE 0.9% FLUSH 5 ML FLUSH FLUSH SCH ×2 (08:54→21:27)
[2016-08-24] MEDS: DICLOFENAC SODIUM 75 MG DELAYED RELEASE TAB PO SCH ×2 (08:55→21:23)
[2016-08-24] MEDS: FUROSEMIDE 20 MG TAB PO SCH ×2 (08:55→17:31)
[2016-08-24] MEDS: POTASSIUM CHLORIDE 20 MEQ CONTROLLED RELEASE TAB PO SCH (08:55)
[2016-08-24] MEDS: PANTOPRAZOLE SOD 40 MG DELAYED RELEASE TAB PO SCH (08:56)
[2016-08-24] MEDS: FLUoxetine HCL 20 MG CAP PO SCH (08:56)
[2016-08-24] MEDS: LISINOPRIL 10 MG TAB PO SCH (08:57)
[2016-08-24] MEDS: GABAPENTIN 400 MG CAP PO SCH ×3 (09:10→21:27)
[2016-08-24] MEDS ORDERED: ZOLP5TAB3 PO (13:35)
[2016-08-24] MEDS ORDERED: TRAM50TA PO (13:35)
[2016-08-24] MEDS ORDERED: ALPR.25 PO (13:35)
[2016-08-24] MEDS ORDERED: KONS100P3 PO (13:35)
[2016-08-24] MEDS ORDERED: PRED20 PO (13:35)
[2016-08-24] MEDS ORDERED: IPRASOL NEB (13:35)
[2016-08-24] MEDS ORDERED: FURO20TA PO (13:35)
[2016-08-24] MEDS ORDERED: POTA20TA5 PO (13:35)
[2016-08-24] MEDS: traMADol HCL 50 MG TAB PO PRN (15:51)
[2016-08-24] MEDS: ENOXAPARIN SODIUM 40 MG/0.4 ML SYRINGE SQ SCH (15:52)
--- NOTE | 2016-08-24 16:53 | HHI.DS ---
Discharge Summary Admission Date Aug 13, 2016 at 23:24 Discharge Date: Aug 24, 2016 Admitting Diagnosis Hypoxia, Pulm Edema, Poss PNA (1) COPD exacerbation ICD Code: J44.1 Diagnosis: Principal Procedures None Brief History - From Admission History from patient, ER physician communication, and review of medical records. Patient reported that she was just discharged from our hospital in the morning. She reports after she arrived home, she was getting more and more short of breath. Denies cough. Denies sputum production. Denies any chest pains. She states that she was discharged on home oxygen. She was noted to be quite short of breath with hypoxia in the room air to the 80s upon arrival by EMS. In the emergency room, patient was placed on initially nasal cannula. However since her saturation was not picking up well, she was then switched to nonrebreather. She is saturating 95% on nonrebreather. She was also somewhat of an distress in terms of respiratory accessory muscle use. Therefore in ER she was switched to BiPAP. After the BiPAP administration , patient was quite comfortable. At the time of my exam, patient is awake, alert, oriented. Comfortable on BiPAP. She just received her Lasix and therefore she is urinating quite well. CBC/BMP: 08/24/16 0710 08/24/16 0710 Significant Findings Laboratory Tests Test 08/22/16 08/23/16 08/24/16 07:04 07:20 07:10 Sodium Level 135 MEQ/L 132 MEQ/L 135 MEQ/L (136-145) (136-145) (136-145) Chloride Level 96 MEQ/L 94 MEQ/L (98-107) (98-107) Blood Urea Nitrogen 23 MG/DL (7-18) 27 MG/DL (7-18) 27 MG/DL (7-18) Estimat Glomerular Filtration 80 ML/MIN (>89) Rate Random Glucose 157 MG/DL 145 MG/DL 155 MG/DL (74-106) (74-106) (74-106) Calcium Level 8.2 MG/DL 8.2 MG/DL (8.5-10.1) (8.5-10.1) White Blood Count 11.9 TH/MM3 (4.0-11.0) Red Blood Count 3.59 MIL/MM3 (4.00-5.30) Hemoglobin 11.3 GM/DL (11.6-15.3) Hematocrit 33.6 % (35.0-46.0) Neutrophils (%) (Auto) 82.7 % (16.0-70.0) Neutrophils # (Auto) 9.8 TH/MM3 (1.8-7.7) Imaging Last Impressions Chest X-Ray 08/24/16 0600 Signed Impressions: Service Date/Time: Wednesday, August 24, 2016 05:08 - CONCLUSION: Unchanged appearance to the chest. David Tse Jr., MD CT Angiography 08/13/169 Signed Impressions: Service Date/Time: Saturday, August 13, 2016 23:22 - CONCLUSION: No evidence of pulmonary embolism. Diffuse bilateral lung disease and likely reactive adenopathy. Lux Petersen MD PE at Discharge Not in distress, appears anxious, on nasal cannula. PERRL, pink conjunctiva without injection, anicteric Nose without bleeding, airway patent, oropharynx clear Supple neck, no masses or thyromegaly, trachea midline Normal rate and regular rhythm, no murmurs gallops or rubs appreciated. Decreased breath sounds symmetrically, otherwise clear, no wheezing or crackles. Normal bowel sounds, soft, non-tender, nondistended, no guarding. Extremities without clubbing, cyanosis, or edema. No rash of generalized distribution. Skin is warm and dry. AAO x3, no cranial nerve deficits, moves all 4 extremities, no focal neurologic deficits Pt update on day of discharge No overnight events, shortness of breath a lot better, no nausea or vomiting. Ambulating. Still on 4 L of oxygen. Cleared by pulmonary for discharge. Hospital Course This is a 60-year-old female with history of chronic respiratory failure secondary to COPD and CHF admitted for shortness of breath. CT negative for PE, patient was started empirically on cefepime and Flagyl. Pulmonary was consulted. She was also started on intravenous Solu-Medrol. She was maintained on DuoNeb's, and oxygen support. Rheumatoid factor was done and was negative. Moreover, patient also had pulmonary edema and was started on Lasix twice a day intravenously initially and then switched to oral. Creatinine remained stable. Records reviewed, showed an ejection fraction of 65% with possible diastolic heart failure, echocardiogram done August 06. After several days, patient's respiratory status improved and was weaned from nonrebreather to nasal cannula. Antibiotics were switched to Ceftin and Flagyl. Prednisone was decreased. He will continue prednisone 40 mg a day and will be discharged to a rehabilitation facility. Blood pressure was controlled with lisinopril, hydrochlorothiazide was stopped. She was cleared by pulmonary for discharge and will follow-up with Dr. Potts in 2 weeks. Pt Condition on Discharge: Good Discharge Disposition: Discharge to SNF Discharge Time: > 30 minutes Discharge Instructions DIET: Follow Instructions for: Heart Healthy Diet Activities you can perform: Regular-No Restrictions Follow up Referrals: Pulmonology - 2 Weeks with Mario Damon MD New Medications: Alprazolam (Xanax) 0.25 Mg Tab 0.125 MG PO Q6H PRN anxiety. #5 TAB Furosemide (Furosemide) 20 Mg Tab 20 MG PO BID@,18 congestion #60 TAB Ipratropium-Albuterol Neb (Duoneb) 0.5-2.5 Mg/3 Ml Neb 1 AMPULE NEB Q2HR NEB PRN SOB/WHEEZING #30 ML Potassium Chloride Microencaps (Potassium Chloride Microencaps) 20 Meq Tab 20 MEQ PO DAILY supplement #30 TAB Prednisone (Prednisone) 20 Mg Tab 20 MG PO BID COPD #60 TAB Psyllium Powder (Konsyl) 100 % Pow 1 PKT PO DAILY PRN constipation Days 30 BOTTLE Continued Medications: Albuterol 18 GM Inh (Ventolin Hfa 18 GM Inh) 90 Mcg/Act Aer 2 PUFF INH QID PRN SHORTNESS OF BREATH #1 Ref [address] (Diclofen[address] Sodium DR) 75 Mg Tabdr 75 MG PO BID #60 Ref 0 TAB Fluoxetine (Fluoxetine) 40 Mg Cap 80 MG PO DAILY #30 Ref 0 CAP Gabapentin (Gabapentin) 800 Mg Tab 800 MG PO HS #90 Ref 0 TAB Gabapentin (Gabapentin) 400 Mg Cap 400 CAP PO BID #30 Ref 0 CAP Lisinopril-Hctz (Lisinopril-Hctz) 10-12.5 Mg Tab 1 TAB PO DAILY Blood Pressure Management #30 Ref 0 TAB Pravastatin (Pravastatin) 80 Mg Tab 80 MG PO HS Cholesterol Management #30 Ref 0 TAB Tiotropium Inh (Spiriva Respimat Inh) 1.25 Mcg/Act Aero 2 PUFF INH DAILY 1.25 mcg = 1 inhalation Asthma Management #1 Ref 0 INHALER Tramadol (Tramadol) 50 Mg Tab 50 MG PO TID PRN PAIN #10 Ref 0 TAB (This prescription has been renewed) Zolpidem (Zolpidem) 5 Mg Tab 5 MG PO HS insomnia #5 Ref 0 TAB (This prescription has been renewed) Discontinued Medications: Amoxicillin-Clavulanate (Augmentin) 500-125 mg Tab 500 MG PO TID Infection Days 7 Ref 0 TAB Cyclobenzaprine (Flexeril) 5 Mg Tab 5-10 MG PO BID PRN MUSCLE SPASM #90 Ref 0 TAB Prednisone (Prednisone) 10 Mg Tab 10 MG PO BID Days 7 Ref 0 TAB Tuyet Cartagena MD Aug 24, 2016 16:52
[2016-08-24] MEDS: PRAVASTATIN SOD 80 MG TAB PO SCH (17:34)
--- NOTE | 2016-08-24 19:36 | HHI.PR ---
Subjective Remarks Better today .No cough and less wheezing. Now On a N/C 4 L.. No fever. walks in halls Needs rehab. Objective Vital Signs Date Time Temp Pulse Resp B/P Pulse Ox O2 Delivery O2 Flow Rate FiO2 08/24/16 16:00 78 20 119/63 92 08/24/16 12:00 Nasal Cannula 5.00 35 08/24/16 12:00 97.6 88 18 110/79 94 08/24/16 08:34 92 Nasal Cannula 5.00 08/24/16 08:05 Nasal Cannula 5.00 45 08/24/16 08:00 96.2 79 18 130/60 100 08/24/16 04:40 08/24/16 04:00 97.7 81 20 111/59 99 08/24/16 03:09 99 45 08/24/16 00:00 97.9 86 20 104/55 96 08/23/16 23:00 Nasal Cannula 5.00 08/23/16 22:10 98 45 08/23/16 21:36 98 BiPAP 45 08/23/16 21:06 Nasal Cannula 5.00 45 08/23/16 20:00 98.4 86 18 104/58 94 I/O 08/23/16 08/23/16 08/23/16 08/24/16 08/24/16 08/24/16 07:00 15:00 23:00 07:00 15:00 23:00 Intake Total 240 ml 480 ml 480 ml 240 ml 1680 ml Output Total 450 ml Balance -210 ml 480 ml 480 ml 240 ml 1680 ml Intake Oral 240 ml 480 ml 480 ml 240 ml 1680 ml Output Urine Total 450 ml # Voids 10 2 2 6 # Bowel Movements 1 1 Result Diagram: 08/24/16 0710 08/24/16 0710 Objective Remarks Well built Mid aged W/F alert and in no distress HEENT: Exam unremarkable. Eyes without icterus. NECK: Without adenopathy or thyroid enlargement. Veins not distended CHEST:.No crackles.Distant breath sounds. Occ Bilateral wheeze. CARDIOVASCULAR: Examination PMI distant. S1-S2 audible. ABDOMEN: Soft ,bowel sounds audible.No mass. EXTREMITIES: No clubbing, cyanosis or edema. SKIN: Normal. No lymphadenopathy. Assessment and Plan Assessment and Plan IMPRESSION 1. Respiratory failure. 2. Pneumonia. 3. Question congestive heart failure. 4. Obesity. 5. Tobacco abuse. 6. COPD with Acute exacerbation. Plan: 1. Cont PO ceftin for 5 days 2. Flagyl 500 mg PO tid 1 week.. 3. nebs qid , duoneb. 4. Wean O2 to N/C 3 L 5. duonebs qid. 6. Prednisone 20 mg bid 7. D/C Bipap at HS 6. Cont Lasix 20 mg and Kcl 20 Meq daily. 7. To rehab soon. Mario Damon MD Aug 24, 2016 19:36
[2016-08-24] MEDS: ZOLPIDEM TARTRATE 5 MG TAB PO SCH (22:15)
[2016-08-25] VITALS (7 sets, daily range): BP systolic 108–128; BP diastolic 57–79; PULSE 78–96; RESP 18–20; TEMP 96.5–97.7; O2SAT 92–96
[2016-08-25] MEDS: RESP: ALBUTEROL 2.5 MG/IPRATROPIUM 0.5 MG NEB (PRN) NEB ×2 (08:18→14:43)
[2016-08-25] MEDS: LISINOPRIL 10 MG TAB PO SCH (09:00)
[2016-08-25] MEDS: FUROSEMIDE 20 MG TAB PO SCH (09:25)
[2016-08-25] MEDS: predniSONE 20 MG TAB PO SCH (09:26)
[2016-08-25] MEDS: SODIUM CHLORIDE 0.9% FLUSH 5 ML FLUSH FLUSH SCH (09:26)
[2016-08-25] MEDS: DICLOFENAC SODIUM 75 MG DELAYED RELEASE TAB PO SCH (09:27)
[2016-08-25] MEDS: FLUoxetine HCL 20 MG CAP PO SCH (09:27)
[2016-08-25] MEDS: POTASSIUM CHLORIDE 20 MEQ CONTROLLED RELEASE TAB PO SCH (09:27)
[2016-08-25] MEDS: PANTOPRAZOLE SOD 40 MG DELAYED RELEASE TAB PO SCH (09:27)
[2016-08-25] MEDS: GABAPENTIN 400 MG CAP PO SCH ×2 (09:31→15:01)
[2016-08-25] MEDS: traMADol HCL 50 MG TAB PO PRN (15:01)
--- NOTE | 2016-08-25 16:39 | HHI.PR ---
Subjective Remarks up and ambulating comfortablyon 02 NC looking forward to going to SNF today + BM denies any chest pain Objective Vitals Vital Signs Date Time Temp Pulse Resp B/P Pulse Ox O2 Delivery O2 Flow Rate FiO2 08/25/16 14:04 Nasal Cannula 4.00 08/25/16 12:00 97.7 96 20 108/64 92 08/25/16 08:20 93 Nasal Cannula 5.00 08/25/16 08:00 96.6 83 18 127/58 93 08/25/16 04:04 92 45 08/25/16 04:00 96.5 78 18 113/57 96 08/25/16 03:37 Bi-Pap 08/25/16 00:00 97.1 83 18 114/61 94 08/24/16 23:30 Bi-Pap 08/24/16 22:17 92 45 08/24/16 22:16 Bi-Pap 08/24/16 22:04 91 Nasal Cannula 5.00 08/24/16 21:32 Nasal Cannula 4.00 08/24/16 20:00 97.2 81 18 114/61 92 I/O 08/24/16 08/24/16 08/24/16 08/25/16 08/25/16 08/25/16 07:00 15:00 23:00 07:00 15:00 23:00 Intake Total 240 ml 1680 ml 600 ml 240 ml 1320 ml Balance 240 ml 1680 ml 600 ml 240 ml 1320 ml Intake Oral 240 ml 1680 ml 600 ml 240 ml 1320 ml # Voids 2 6 2 1 8 # Bowel Movements 1 2 Result Diagram: 08/24/16 0710 08/24/16 0710 Imaging Last Impressions Chest X-Ray 08/24/16 0600 Signed Impressions: Service Date/Time: Wednesday, August 24, 2016 05:08 - CONCLUSION: Unchanged appearance to the chest. David Tse Jr., MD CT Angiography 08/13/16 0368 Signed Impressions: Service Date/Time: Saturday, August 13, 2016 23:22 - CONCLUSION: No evidence of pulmonary embolism. Diffuse bilateral lung disease and likely reactive adenopathy. Lux Petersen MD Objective Remarks awake and alert, anicteric lungs no rales, decreased breath sounds regular rhythm abdomen-soft extremities no edema Procedures None A/P Problem List: (1) COPD exacerbation ICD Code: J44.1 Status: Acute Assessment and Plan 60 years old female admitted for shortness of breath S/P Acute respiratory failure, possible COPD exacerbation- CT negative for PE, cefepime stopped, continue continue Flagyl orally, started on Ceftin. Finish after today. CT scan of the chest showed bilateral infiltrates which is improved from previous. Rheumatoid factor negative. Admitted patient. Continue incentive spirometry. Discussed extensively with pulmonary 08/23/16, Keep prednisone at 40 mg twice a day. Discharge on 3 L/NC of oxygen to rehabilitation. Mild CHF- chest x-ray personally reviewed showed pulmonary edema, BNP normal, continue Lasix twice a day, Recheck BMP tomorrow. Records reviewed, showed an ejection fraction of 65% with possible diastolic heart failure, echocardiogram done August 06. Continue potassium chloride. Leukocytosis-likely secondary to steroids history of Depression- on Prozac history of chronic back pain, neuropathy - gabapentin history of HTN- continue lisinopril, hold hydrochlorothiazide given soft blood pressure. Anxiety-start Xanax as needed. Constipation- continue bisacodyl, Metamucil every day as needed. Regular diet. Lovenox for DVT prophylaxis Discharge today OP ff up with Pulmonary Villa Davila MD Aug 25, 2016 16:39
== END 2016-08-25 17:08 | DRG 189 ==
LOC: NEPE 21:42 → NEDA 23:24 → HCIN 08-14 02:45 → HOCB 08-20 12:52
PROVIDERS: ADMIT Internal Medicine; ATTEND Internal Medicine
PROC: 5A09557 Assistance with Respiratory Ventilation, Greater than 96 Consecutive Hours, Continuous Positive Airway Pressure (ICD-10-PCS; principal; 2016-08-13)
DX: J96.21 Acute and chronic respiratory failure with hypoxia (principal); J18.9 Pneumonia, unspecified organism; E87.3 Alkalosis; I11.0 Hypertensive heart disease with heart failure; J81.1 Chronic pulmonary edema; I50.30 Unspecified diastolic (congestive) heart failure; J44.0 Chronic obstructive pulmonary disease with (acute) lower respiratory infection; J44.1 Chronic obstructive pulmonary disease with (acute) exacerbation; G62.9 Polyneuropathy, unspecified; M54.9 Dorsalgia, unspecified; G89.29 Other chronic pain; F32.9 Major depressive disorder, single episode, unspecified; K59.00 Constipation, unspecified; E66.9 Obesity, unspecified; E87.6 Hypokalemia; I35.0 Nonrheumatic aortic (valve) stenosis; F41.9 Anxiety disorder, unspecified; F17.210 Nicotine dependence, cigarettes, uncomplicated; M25.532 Pain in left wrist; M25.531 Pain in right wrist; M19.90 Unspecified osteoarthritis, unspecified site; T38.0X5A Adverse effect of glucocorticoids and synthetic analogues, initial encounter; Z88.5 Allergy status to narcotic agent; Z90.710 Acquired absence of both cervix and uterus; Z98.1 Arthrodesis status; Z99.81 Dependence on supplemental oxygen
CPT/HCPCS: 36600; 71010; 71275; 76937; 80048; 80053; 82550; 82805; 83880; 84484; 85025; 86038; 86430; 87040; 93005; 94002; 94003; 94150; 94640; 94664; J0692; J1650; J1940; J2920; J3370; J7050; J7512; Q9967